=== PATIENT | male | born 1960 | race Caucasian/White ===

== ENCOUNTER 2021-06-16 18:48 | Emergency (ER) | payer OTHER ==
[~2021-06-16] VITALS: Ht 172.7 cm; Wt 61.2 kg
[~2021-06-16 18:48] MED LIST: ALBU90OI INH; AMOX500 PO; AZIT250 PO; Amoxicillin500 MG PO; B-1100 MG PO; BENZ100A PO; Bactrim Ds Tab1 EACH PO; Benadryl 50 mg50 MG PO; CEPH500 PO; CHLO25 PO; CHLO5 PO; CLIN300 PO; CLOB.05TC TOP; Cleocin HCl150 MG PO; Cleocin HCl300 MG PO; DIAZ2 PO; DOXY100 PO; ESOM20; FAMO20 PO; FOLI1 PO; GABA100 PO; HYDACE5 PO; IBUP600 PO; IBUP800 PO; Kristalose20 GM PO; LEVFLO500 PO; MALATHION59 ML TP; MEDICAL MARIJUANA; METR500 PO; MULVITMIND PO; MUPI2TC TOP; NAPR500 PO; Nix Lice Treatm59 ML TOP; Norco 10-325 T1 EACH PO; Nystatin15 GM TOP; OXYC5 PO; PENVK500 PO; PROM25 PO; Pepcid20 MG PO; Pepcid40 MG PO; Permethrin59 ML TOP; Prednisone10 MG PO; RANI150 PO; RXCLIN PO; RXHYDACE PO; RXTRAM50 PO; SULTRIDS PO; SULTRISS PO; TRAM50 PO; Triamcinolone A15 GM TOP; Ultram50 MG PO; Zithromax250 MG PO; Zofran Odt4 MG SL; [UNRECOGNIZED DRUG - REMARK]
== END 2021-06-16 19:40 | disposition home or self-care (01) ==
LOC: ER 18:48
DX: M54.5 Low back pain (principal); G89.29 Other chronic pain; F17.210 Nicotine dependence, cigarettes, uncomplicated; Z79.899 Other long term (current) drug therapy
CPT/HCPCS: 96372; 99282-25; J1885

== ENCOUNTER 2021-07-08 16:45 | Emergency (ER) | payer OTHER ==
[~2021-07-08] VITALS: Ht 170.2 cm; Wt 61.2 kg
== END 2021-07-08 21:00 | disposition left against medical advice (07) ==
LOC: ER 16:45
DX: M54.9 Dorsalgia, unspecified (principal); Z53.21 Procedure and treatment not carried out due to patient leaving prior to being seen by health care provider
CPT/HCPCS: 99283

== ENCOUNTER 2021-08-02 13:44 | Emergency (ER) | payer OTHER ==
[~2021-08-02] VITALS: Ht 167.6 cm; Wt 68.0 kg
[2021-08-02 14:21] LABS: BASOPHILS ABSOLUTE AUTO 0.05 K/mm3 (0.00-0.23); BASOPHILS PERCENT AUTO 1 % (0-2); EOSINOPHILS ABSOLUTE AUTO 0.04 K/mm3 (0.00-0.68); EOSINOPHILS PERCENT AUTO 1 % (0-6); Hematocrit 48.5 % (37.0-53.0); Hemoglobin 16.6 g/dL (13.5-17.5); IMMATURE GRAN ABSOLUTE AUTO 0.01 K/mm3 (0.00-0.10); IMMATURE GRAN PERCENT AUTO 0 % (0-1); LYMPHOCYTES ABSOLUTE AUTO 1.96 K/mm3 (0.84-5.20); LYMPHOCYTES PERCENT AUTO 30 % (21-46); MONOCYTES ABSOLUTE AUTO 0.48 K/mm3 (0.16-1.47); MONOCYTES PERCENT AUTO 7 % (4-13); Mean Corpuscular HGB 34.7 pg (26.0-34.0); Mean Corpuscular HGB Conc 34.2 g/dL (31.5-36.5); Mean Corpuscular Volume 102 fL (80-100); Mean Platelet Volume 12.3 fL (9.1-12.4); NEUTROPHILS ABSOLUTE AUTO 3.97 K/mm3 (1.96-9.15); NEUTROPHILS PERCENT AUTO 61 % (41-73); Platelet Count 103 K/mm3 (150-400); RDW Coefficient Variation 13.9 % (11.7-14.2); RDW Standard Deviation 52.9 fL (35.1-46.3); Red Blood Cell Count 4.78 M/mm3 (4.30-5.90); White Blood Cell Count 6.51 K/mm3 (4.00-11.30)
[2021-08-02 14:30] LABS: Base Excess Venous 0.3 mmol/L; Bicarbonate Venous 23.8 mmol/L (24.0-30.0); PCO2 Venous 50.5 mmHg (38-42); pH Blood Venous 7.33 (7.34-7.37)
[2021-08-02 14:41] LABS: Alanine Aminotransfer (ALT/SGP 74 U/L (12-78); Albumin, Blood 3.8 g/dL (3.4-5.0); Albumin/Globulin Ratio 0.8 (0.8-1.8); Alk Phos 187 U/L (50-136); Anion Gap 8 mmol/L (6-16); Aspartate Aminotrans (AST/SGOT 91 U/L (12-37); Bilirubin, Direct 0.2 mg/dL (0.0-0.3); Bilirubin, Indirect 0.2 mg/dL (0.1-0.7); Bilirubin, Total 0.4 mg/dL (0.1-1.0); Blood Urea Nitrogen 5 mg/dL (8-24); Bun/Creatinine Ratio 10.2 (12.0-20.0); CO2, Blood 24 mmol/L (21-32); Calcium, Blood 8.4 mg/dL (8.5-10.1); Chloride, Blood 108 mmol/L (98-108); Creatinine, Blood 0.49 mg/dL (0.60-1.20); Globulin, Blood 4.6 g/dL (2.2-4.0); Glomerular Filtration Rate >60 (60-); Glucose, Blood 88 mg/dL (70-99); Magnesium, Blood 1.7 mg/dL (1.6-2.4); Potassium, Blood 3.8 mmol/L (3.5-5.5); Sodium, Blood 140 mmol/L (136-145); Total Protein, Blood 8.4 g/dL (6.4-8.2); Troponin I <0.015 ng/mL (0.000-0.040)
[2021-08-02 14:56] LABS: Influenza A, PCR NEGATIVE (NEGATIVE); Influenza B, PCR NEGATIVE (NEGATIVE); Resp Syncytial Virus, PCR NEGATIVE (NEGATIVE); SARS-Cov-2 (COVID-19) PCR, MMC NEGATIVE (NEGATIVE)
[2021-08-02 17:45] LABS: Source, Urine Clean Catch
[2021-08-02 17:53] LABS: Appearance, Urine Clear (Clear); Bilirubin, Urine Neg (Neg); Blood, Urine 1+ (Neg); Color, Urine Yellow (P-Yellow); Glucose Qualitative, Urine Neg (Neg); Ketones, Urine Neg (Neg); Leukocyte Esterase, Urine Neg (Neg); Nitrite, Urine Neg (Neg); Protein, Urine 2+ (Neg); Urobilinogen, Urine NORM (Normal)
[2021-08-02 18:01] LABS: Bacteria Mod /hpf; Mucus Light (0-Heavy); Red Blood Cells, Urine Rare /hpf (0-2); Squamous Epithelial Cells Rare /hpf (Few); White Blood Cells, Urine 0-2 /hpf (0-5)
[2021-08-02] MEDS ORDERED: DOXY100 PO (19:08)
[2021-08-02] MEDS ORDERED: COMBIVENT RESPIM4 G1 INH (19:08)
[2021-08-02] MEDS ORDERED: PRED20 PO (19:08)
[2021-08-02] MEDS ORDERED: SPACE CHAMBER1 EACH XX (19:08)
== END 2021-08-02 19:22 | disposition home or self-care (01) ==
LOC: ER 13:44
PROVIDERS: Student in an Organized Health Care Education/Training Program
DX: J44.1 Chronic obstructive pulmonary disease with (acute) exacerbation (principal); K29.70 Gastritis, unspecified, without bleeding; F10.10 Alcohol abuse, uncomplicated; Z20.822 Contact with and (suspected) exposure to COVID-19; F17.210 Nicotine dependence, cigarettes, uncomplicated
CPT/HCPCS: 0241U; 36415; 71045; 80048; 80076; 81001; 82803; 83690; 83735; 84484; 85025; 87086; 93005; 93010; 96374; 96375; 99284-25; A9270; J1885; J2405; J7030; J7512

== ENCOUNTER 2021-08-03 09:31 | Emergency (ER) | payer OTHER ==
[~2021-08-03] VITALS: Ht 172.7 cm; Wt 59.0 kg
[~2021-08-03 09:31] MED LIST changes: +COMBIVENT RESPIM4 G1 INH; +PRED20 PO; +SPACE CHAMBER1 EACH XX
== END 2021-08-03 11:43 | disposition home or self-care (01) ==
LOC: ER 09:31
DX: S80.211A Abrasion, right knee, initial encounter (principal); J44.9 Chronic obstructive pulmonary disease, unspecified; Z79.899 Other long term (current) drug therapy; F17.210 Nicotine dependence, cigarettes, uncomplicated; Y04.2XXA Assault by strike against or bumped into by another person, initial encounter
CPT/HCPCS: 73564; 99283-25; A9270

== ENCOUNTER 2021-08-18 11:00 | Emergency (ER) | payer OTHER ==
[~2021-08-18] VITALS: Ht 170.2 cm; Wt 54.4 kg
[2021-08-19] MEDS ORDERED: IBUP400 PO (06:03)
[2021-08-19] MEDS ORDERED: ACET500 PO (06:03)
[2021-08-19] MEDS ORDERED: COMBIVENT RESPIM4 G1 INH (06:03)
== END 2021-08-18 15:19 | disposition left against medical advice (07) ==
LOC: ER 11:00
DX: R21 Rash and other nonspecific skin eruption (principal); R06.02 Shortness of breath; Z53.21 Procedure and treatment not carried out due to patient leaving prior to being seen by health care provider; Z59.00 Homelessness unspecified

== ENCOUNTER 2021-08-19 04:03 | Inpatient (IN) | payer OTHER ==
[~2021-08-19] VITALS: Ht 165.1 cm; Wt 70.3 kg
[2021-08-19 04:50] LABS: BASOPHILS ABSOLUTE AUTO 0.04 K/mm3 (0.00-0.23); BASOPHILS PERCENT AUTO 1 % (0-2); EOSINOPHILS ABSOLUTE AUTO 0.03 K/mm3 (0.00-0.68); EOSINOPHILS PERCENT AUTO 0 % (0-6); Hemoglobin 13.1 g/dL (13.5-17.5); IMMATURE GRAN ABSOLUTE AUTO 0.03 K/mm3 (0.00-0.10); IMMATURE GRAN PERCENT AUTO 0 % (0-1); LYMPHOCYTES ABSOLUTE AUTO 1.69 K/mm3 (0.84-5.20); LYMPHOCYTES PERCENT AUTO 21 % (21-46); MONOCYTES ABSOLUTE AUTO 0.82 K/mm3 (0.16-1.47); MONOCYTES PERCENT AUTO 10 % (4-13); Mean Corpuscular HGB 34.5 pg (26.0-34.0); Mean Corpuscular HGB Conc 34.5 g/dL (31.5-36.5); Mean Corpuscular Volume 100 fL (80-100); Mean Platelet Volume 11.5 fL (9.1-12.4); NEUTROPHILS ABSOLUTE AUTO 5.54 K/mm3 (1.96-9.15); NEUTROPHILS PERCENT AUTO 68 % (41-73); Platelet Count 72 K/mm3 (150-400); RDW Coefficient Variation 13.9 % (11.7-14.2); RDW Standard Deviation 50.9 fL (35.1-46.3); White Blood Cell Count 8.15 K/mm3 (4.00-11.30)
[2021-08-19 05:08] LABS: Alanine Aminotransfer (ALT/SGP 84 U/L (12-78); Albumin, Blood 3.3 g/dL (3.4-5.0); Albumin/Globulin Ratio 0.8 (0.8-1.8); Alk Phos 227 U/L (50-136); Anion Gap 11 mmol/L (6-16); Aspartate Aminotrans (AST/SGOT 149 U/L (12-37); Bilirubin, Total 0.5 mg/dL (0.1-1.0); Blood Urea Nitrogen 12 mg/dL (8-24); CO2, Blood 19 mmol/L (21-32); Calcium, Blood 8.5 mg/dL (8.5-10.1); Chloride, Blood 104 mmol/L (98-108); Creatinine, Blood 0.48 mg/dL (0.60-1.20); Globulin, Blood 4.3 g/dL (2.2-4.0); Glomerular Filtration Rate >60 (60-); Glucose, Blood 98 mg/dL (70-99); Magnesium, Blood 1.9 mg/dL (1.6-2.4); Potassium, Blood 5.1 mmol/L (3.5-5.5); Sodium, Blood 134 mmol/L (136-145); Total Protein, Blood 7.6 g/dL (6.4-8.2); Troponin I <0.015 ng/mL (0.000-0.040)
[2021-08-19 05:24] LABS: Influenza A, PCR NEGATIVE (NEGATIVE); Influenza B, PCR NEGATIVE (NEGATIVE); Resp Syncytial Virus, PCR NEGATIVE (NEGATIVE); SARS-Cov-2 (COVID-19) PCR, MMC NEGATIVE (NEGATIVE)
[2021-08-19] MEDS ORDERED: IBUP400 PO (06:03)
[2021-08-19] MEDS ORDERED: COMBIVENT RESPIM4 G1 INH (06:03)
[2021-08-19] MEDS ORDERED: ACET500 PO (06:03)
[2021-08-19 10:23] LABS: International Normalized Ratio 1.08; Prothrombin Time Results 11.3 Sec (9.7-11.5)
[2021-08-19 11:16] LABS: Source, Urine Clean Catch
[2021-08-19 11:21] LABS: Appearance, Urine Clear (Clear); Bilirubin, Urine Neg (Neg); Blood, Urine Neg (Neg); Glucose Qualitative, Urine Neg (Neg); Ketones, Urine Neg (Neg); Leukocyte Esterase, Urine Neg (Neg); Nitrite, Urine Neg (Neg); Protein, Urine Neg (Neg); Specific Gravity, Urine 1.015 (1.003-1.022); Urobilinogen, Urine NORM (Normal)
[2021-08-19 12:23] LABS: Color, Urine Pale Yellow (P-Yellow)
[2021-08-19 13:30] LABS: Percent Saturation 66.2 % (20.0-50.0)
--- NOTE | 2021-08-19 13:32 | NUR ---
Echocardiogram completed.
--- NOTE | 2021-08-19 17:11 | NUR ---
SHIFT SUMMARY: PATIENT TRANSFERRED FROM ED W/DX OF RAPID AFIB. PATIENT REPORTS ALCOHOL ABUSE AND STATED LAST DRINK WAS 08/18. CIWA SCORE OF 11 AT 1610; MEDICATED PER EMAR. PATIENT HAS REPORTED CHILLS SINCE ARRIVAL; THIS RN HAS SUPPLIED WARMED BLANKETS. PATIENT IS NAUSEOUS WITH HEADACHE BUT HAS NOT VOMITED. PATIENT STATES HIS FEET ARE "KILLING HIM." MEDICATED FOR PAIN PER EMAR THOUGH PATIENT REPORTED SAME PAIN OF 8/10 IN FEET UPON REASSESSMENT. PATIENT DROWSY AND WITHDRAWN. SCATTERED SCABS ON ALL EXTREMETIES; MEDIPLEX APPLIED TO SACRUM. HAIR AND SKIN WAS CLEANSED UPON ARRIVAL TO UNIT. PATIENT IS A&O X4 WHEN AWAKE. WILL REPORT TO NOC RN.
--- NOTE | 2021-08-19 21:00 | NUR ---
ASSUMED CARE OF PATIENT AT 1900. PATIENT IS A/O X4 BUT VERY LETHARGIC, LAST CIWA OF 11, MEDICATED PER EMAR. PATIENT STATES GENERALIZED BODY PAINS. VERY TREMULOUS. AFIB AVG 97 PER TELEMETRY. CONDOM CATH WAS PLACED D/T BEING TREMULOUS AND VERY LETHARGIC. PSORIASIS ON ALL EXTREMITIES AND VERY DRY SKIN. WILL UPDATE WITH CHANGES DURING THIS SHIFT.
[2021-08-20 04:03] LABS: Hematocrit 32.2 % (37.0-53.0); Hemoglobin 10.9 g/dL (13.5-17.5); Mean Corpuscular HGB 34.7 pg (26.0-34.0); Mean Corpuscular HGB Conc 33.9 g/dL (31.5-36.5); Mean Corpuscular Volume 103 fL (80-100); Platelet Count 54 K/mm3 (150-400); RDW Coefficient Variation 14.4 % (11.7-14.2); RDW Standard Deviation 53.9 fL (35.1-46.3); Red Blood Cell Count 3.14 M/mm3 (4.30-5.90); White Blood Cell Count 7.24 K/mm3 (4.00-11.30)
[2021-08-20 04:33] LABS: Alanine Aminotransfer (ALT/SGP 54 U/L (12-78); Albumin, Blood 2.3 g/dL (3.4-5.0); Alk Phos 156 U/L (50-136); Anion Gap 4 mmol/L (6-16); Aspartate Aminotrans (AST/SGOT 84 U/L (12-37); Bilirubin, Total 1.2 mg/dL (0.1-1.0); Blood Urea Nitrogen 9 mg/dL (8-24); Bun/Creatinine Ratio 13.9 (12.0-20.0); CO2, Blood 23 mmol/L (21-32); Calcium, Blood 7.7 mg/dL (8.5-10.1); Chloride, Blood 115 mmol/L (98-108); Creatinine, Blood 0.65 mg/dL (0.60-1.20); Glomerular Filtration Rate >60 (60-); Glucose, Blood 81 mg/dL (70-99); Magnesium, Blood 1.9 mg/dL (1.6-2.4); Potassium, Blood 4.5 mmol/L (3.5-5.5); Sodium, Blood 142 mmol/L (136-145)
[2021-08-20 04:38] LABS: Albumin/Globulin Ratio 0.7 (0.8-1.8); Globulin, Blood 3.2 g/dL (2.2-4.0)
[2021-08-20 04:59] LABS: Total Protein, Blood 5.5 g/dL (6.4-8.2)
--- NOTE | 2021-08-20 14:45 | NUR ---
Patient is sitting up in bed and immediately tells me that he has no hope for mcc or food, that his spouse, in [place] 4mos ago and that [facility] kicked him out. We explore sources of meaning, purpose and value. Patient is fairly closed off to anything that is attached to hope of movement forward. I will continue to attempt to assist patient in his perspective about himself and the future.
--- NOTE | 2021-08-20 16:58 | NUR ---
SHIFT SUMMARY PT HAS BEEN RESTING IN BED COMFORTABLY ALL DAY. PT HAS COMPLAINED OF GENERALIZED PAIN SEVERAL TIMES TODAY, WITH THE WORST PAIN IN BLE, TREATED PER EMAR. PT GOT EMOTIONAL WHILE TALKING ABOUT PLANS AFTER DISCHARGE, PT IS WORRIED ABOUT LIVING SITUATION AND ONGOING HEALTH.
--- NOTE | 2021-08-20 22:01 | NUR ---
ASSUMED CARE OF PT AT 1900. A/OX4 BUT LETHARGIC. C/O GENERALIZED BODY PAINS. CIWA 8. VERY TREMULOUS AND C/O NAUSEA & H/A. NSR. CONDOM CATH IN PLACE. VSS. LS CLEAR T/O AND MAINTAINS ABOVE 92% ON RA WITH SOME DESAT WHILE SLEEPING. WILL UPDATE WITH ANY CHANGES THIS SHIFT.
[2021-08-21 06:02] LABS: Hematocrit 34.4 % (37.0-53.0); Hemoglobin 11.7 g/dL (13.5-17.5); Mean Corpuscular HGB 35.1 pg (26.0-34.0); Mean Corpuscular Volume 103 fL (80-100); Mean Platelet Volume 12.4 fL (9.1-12.4); Platelet Count 51 K/mm3 (150-400); RDW Coefficient Variation 13.1 % (11.7-14.2); RDW Standard Deviation 49.9 fL (35.1-46.3); Red Blood Cell Count 3.33 M/mm3 (4.30-5.90)
[2021-08-21 06:04] LABS: White Blood Cell Count 6.41 K/mm3 (4.00-11.30)
--- NOTE | 2021-08-21 15:27 | NUR ---
TRANSFER UPDATEREPORT WAS GIVEN AT 1520 VIA PHONE TO AVANI MARQUEZ. PT LEFT UNIT AT 1528 WHEELCHAIR OCCOMPANIED BY RN AND TECH. PT BELONGINGS IN BAGS AND TRANSFERED WITH PT. PT ON ROOM AIR.
--- NOTE | 2021-08-21 19:12 | NUR ---
Mr Sood is a 61 year old male transfered to room 345 from PCU 10 , with an admission diagnosis of AFIB. He is alert and oriented x3, with anxiety and some confusion. Mild tremor noted. He was evalauted for alcohol withdrawal and secored 8 on CIWA. LIRIUM 25 MG was given and it effective. oxycodone 5 mg po was given for pain management, it was effective. One person assist with SBA.Used urinal for voiding. vital signs are stable. Call light within reach.Continue to monitor.
--- NOTE | 2021-08-22 04:31 | NUR ---
SHIFT SUMMARY A/OX3, FORGETFUL AND IMPULSIVE AT TIMES. C/O GENERALIZED PAIN MEDICATED PER EMAR. CIWA'S Q4 AND PRN PER PROTOCOL. SBA WITH CANE TO BATHROOM. VSS, NO ACUTE CHANGES AT THIS TIME. BED IN LOWEST POSITION WITH CALL LIGHT IN REACH. WILL CONTINUE TO MONITOR AND REPORT TO ONCOMING RN.
--- NOTE | 2021-08-22 06:05 | NUR ---
UPDATE PT STATING THAT HE IS "CHECKING HIMSELF OUT OF THIS HOSPITAL" DISCUSSED RISKS OF LEAVING AMA. PT STATES HE IS IN SEVERE PAIN AND NEEDS PAIN MEDICATION AND IS NOW WANTING TO STAY FOR THE TIME BEING AND WOULD LIKE TO DISCUSS WITH PROVIDER.
--- NOTE | 2021-08-22 11:55 | NUR ---
Alert and oriented x3 ,able to make needs known. Complained of anxiety , librum 25 mg po was given. Patient thretaened to leave AMA if he is not given oxycodone and briefly sat on the floor, staff later asked him to get up , he was assisted and redirected. He expressed desire to AMA for second time and packed his belongings. Dr Maharaj notified . Patient left AMA.
== END 2021-08-22 11:44 | disposition left against medical advice (07) | DRG 309 ==
LOC: ER 04:03 → ERHOLD 04:04 → PCU 04:04 → ERHOLD 04:05 → ER 09:21 → ERHOLD 09:21 → PCU 14:21 → MEDS 08-21 15:30
PROVIDERS: Internal Medicine; Student in an Organized Health Care Education/Training Program; ADMIT Internal Medicine
DX: I48.91 Unspecified atrial fibrillation (principal); F10.239 Alcohol dependence with withdrawal, unspecified; E87.1 Hypo-osmolality and hyponatremia; E87.2 Acidosis; T69.1XXA Chilblains, initial encounter; Z66 Do not resuscitate; J44.9 Chronic obstructive pulmonary disease, unspecified; D64.9 Anemia, unspecified; Z20.822 Contact with and (suspected) exposure to COVID-19; R74.01 Elevation of levels of liver transaminase levels; Z23 Encounter for immunization; Z59.00 Homelessness unspecified; D69.6 Thrombocytopenia, unspecified; M25.572 Pain in left ankle and joints of left foot; M25.571 Pain in right ankle and joints of right foot; B18.2 Chronic viral hepatitis C; F41.9 Anxiety disorder, unspecified; L40.9 Psoriasis, unspecified
CPT/HCPCS: 0241U; 36415; 71045; 80053; 81003; 82010; 82607; 82728; 82746; 83540; 83550; 83605; 83735; 84100; 84145; 84484; 85025; 85027; 85610; 85651; 85730; 86141; 90686; 92960; 93005; 93010; 93306; 94640; 94760; 96365; 96366; 96372; 96375; 96376; 99152; 99285-25; A9270; C1751; C9113; G0008; G0378; G0480; J1650; J1885; J2060; J2270; J2405; J3411; J3475; J7030; J7042

== ENCOUNTER 2021-08-22 21:16 | Emergency (ER) | payer OTHER ==
[~2021-08-22] VITALS: Ht 167.6 cm; Wt 59.9 kg
[~2021-08-22 21:16] MED LIST changes: +ACET500 PO; +IBUP400 PO
== END 2021-08-22 23:13 | disposition home or self-care (01) ==
LOC: ER 21:16
DX: F10.10 Alcohol abuse, uncomplicated (principal); M25.561 Pain in right knee; G89.29 Other chronic pain; Z79.899 Other long term (current) drug therapy; J44.9 Chronic obstructive pulmonary disease, unspecified; F17.210 Nicotine dependence, cigarettes, uncomplicated
CPT/HCPCS: 99283

== ENCOUNTER 2021-09-05 13:51 | Emergency (ER) | payer OTHER ==
[~2021-09-05] VITALS: Ht 170.2 cm; Wt 59.0 kg
[~2021-09-05 13:51] MED LIST changes: +Triamcinolone A15 G3 TOP
[2021-09-05 14:38] LABS: Hematocrit 37.5 % (37.0-53.0); Hemoglobin 12.5 g/dL (13.5-17.5); Mean Corpuscular HGB 34.4 pg (26.0-34.0); Mean Corpuscular HGB Conc 33.3 g/dL (31.5-36.5); Mean Corpuscular Volume 103 fL (80-100); Mean Platelet Volume 11.6 fL (9.1-12.4); Platelet Count 121 K/mm3 (150-400); RDW Coefficient Variation 14.2 % (11.7-14.2); RDW Standard Deviation 54.4 fL (35.1-46.3); Red Blood Cell Count 3.63 M/mm3 (4.30-5.90); White Blood Cell Count 9.57 K/mm3 (4.00-11.30)
[2021-09-05 14:56] LABS: Alanine Aminotransfer (ALT/SGP 48 U/L (12-78); Albumin, Blood 3.2 g/dL (3.4-5.0); Albumin/Globulin Ratio 0.7 (0.8-1.8); Alk Phos 172 U/L (50-136); Anion Gap 8 mmol/L (6-16); Aspartate Aminotrans (AST/SGOT 58 U/L (12-37); Bilirubin, Total 0.3 mg/dL (0.1-1.0); Blood Urea Nitrogen 10 mg/dL (8-24); Bun/Creatinine Ratio 15.8 (12.0-20.0); CO2, Blood 25 mmol/L (21-32); Calcium, Blood 8.5 mg/dL (8.5-10.1); Chloride, Blood 104 mmol/L (98-108); Creatinine, Blood 0.63 mg/dL (0.60-1.20); Globulin, Blood 4.4 g/dL (2.2-4.0); Glomerular Filtration Rate >60 (60-); Glucose, Blood 89 mg/dL (70-99); Potassium, Blood 4.1 mmol/L (3.5-5.5); Sodium, Blood 137 mmol/L (136-145); Total Protein, Blood 7.6 g/dL (6.4-8.2); Troponin I <0.015 ng/mL (0.000-0.040)
[2021-09-05 15:05] LABS: BAND PERCENT MAN 1 % (0-8); BASOPHILS PERCENT MAN 0 % (0-2); EOSINOPHILS ABSOLUTE MAN 0.09 K/mm3 (0.00-0.68); EOSINOPHILS PERCENT MAN 1 % (0-6); LYMPHOCYTES % ATYPICAL MANUAL 2 % (0-0); LYMPHOCYTES ABSOLUTE MAN 2.87 K/mm3 (0.84-5.20); LYMPHOCYTES PERCENT MAN 28 % (21-46); MONOCYTES ABSOLUTE MAN 0.38 K/mm3 (0.16-1.47); MONOCYTES PERCENT MAN 4 % (4-13); NEUTROPHILS ABSOLUTE MAN 6.22 K/mm3 (1.96-9.15); SEG NEUTROPHILS PERCENT MAN 64 % (41-73); TOTAL CELLS COUNTED 100
[2021-09-09] MEDS ORDERED: CEPH500 PO (15:56)
== END 2021-09-05 17:59 | disposition home or self-care (01) ==
LOC: ER 13:51
PROVIDERS: Emergency Medicine
DX: R07.9 Chest pain, unspecified (principal); F17.210 Nicotine dependence, cigarettes, uncomplicated
CPT/HCPCS: 71045; 80053; 84484; 85025; 93005; 93010; 99285-25

== ENCOUNTER 2021-10-22 14:40 | Emergency (ER) | payer OTHER ==
[~2021-10-22] VITALS: Ht 170.2 cm; Wt 59.0 kg
[2021-10-22 16:03] LABS: BASOPHILS ABSOLUTE AUTO 0.06 K/mm3 (0.00-0.23); BASOPHILS PERCENT AUTO 1 % (0-2); EOSINOPHILS ABSOLUTE AUTO 0.04 K/mm3 (0.00-0.68); EOSINOPHILS PERCENT AUTO 1 % (0-6); Hematocrit 39.1 % (37.0-53.0); Hemoglobin 13.7 g/dL (13.5-17.5); IMMATURE GRAN ABSOLUTE AUTO 0.02 K/mm3 (0.00-0.10); IMMATURE GRAN PERCENT AUTO 0 % (0-1); LYMPHOCYTES PERCENT AUTO 16 % (21-46); MONOCYTES ABSOLUTE AUTO 0.74 K/mm3 (0.16-1.47); MONOCYTES PERCENT AUTO 10 % (4-13); Mean Corpuscular HGB 35.4 pg (26.0-34.0); Mean Corpuscular Volume 101 fL (80-100); Mean Platelet Volume 11.9 fL (9.1-12.4); NEUTROPHILS ABSOLUTE AUTO 5.36 K/mm3 (1.96-9.15); NEUTROPHILS PERCENT AUTO 72 % (41-73); Platelet Count 81 K/mm3 (150-400); RDW Coefficient Variation 13.6 % (11.7-14.2); RDW Standard Deviation 51.1 fL (35.1-46.3); Red Blood Cell Count 3.87 M/mm3 (4.30-5.90); White Blood Cell Count 7.42 K/mm3 (4.00-11.30)
[2021-10-22 16:32] LABS: C-REACTIVE PROTEIN, EXT RANGE <0.290 mg/dL (0.000-0.300)
[2021-10-22 16:39] LABS: Alanine Aminotransfer (ALT/SGP 67 U/L (12-78); Albumin/Globulin Ratio 1.1 (0.8-1.8); Alk Phos 184 U/L (50-136); Anion Gap 9 mmol/L (6-16); Aspartate Aminotrans (AST/SGOT 90 U/L (12-37); Bilirubin, Total 0.7 mg/dL (0.1-1.0); Blood Urea Nitrogen 11 mg/dL (8-24); Bun/Creatinine Ratio 16.2 (12.0-20.0); CO2, Blood 22 mmol/L (21-32); Calcium, Blood 8.5 mg/dL (8.5-10.1); Chloride, Blood 102 mmol/L (98-108); Creatinine, Blood 0.68 mg/dL (0.60-1.20); Globulin, Blood 3.5 g/dL (2.2-4.0); Glomerular Filtration Rate >60 (60-); Glucose, Blood 92 mg/dL (70-99); Potassium, Blood 4.6 mmol/L (3.5-5.5); Sodium, Blood 133 mmol/L (136-145); Total Protein, Blood 7.5 g/dL (6.4-8.2)
[2021-10-22] MEDS ORDERED: Cleocin HCl150 MG PO (18:13)
[2021-10-22] MEDS ORDERED: MUPIROCIN1 G1 TOP (18:13)
== END 2021-10-22 18:52 | disposition home or self-care (01) ==
LOC: ER 14:40
PROVIDERS: Physician Assistant
DX: L08.9 Local infection of the skin and subcutaneous tissue, unspecified (principal)
CPT/HCPCS: 36415; 73620; 80053; 85025; 86140; 99284-25; A9270

== ENCOUNTER 2021-12-01 14:50 | Emergency (ER) | payer OTHER ==
[~2021-12-01] VITALS: Ht 170.2 cm; Wt 58.5 kg
[~2021-12-01 14:50] MED LIST changes: +MUPIROCIN1 G1 TOP
[2021-12-01] MEDS ORDERED: Bactrim Ds Tab1 EACH PO (15:56)
[2021-12-01] MEDS ORDERED: CEPH500 PO (15:56)
== END 2021-12-01 16:10 | disposition home or self-care (01) ==
LOC: ER 14:50
DX: S00.31XA Abrasion of nose, initial encounter (principal); L03.032 Cellulitis of left toe; L02.612 Cutaneous abscess of left foot; W19.XXXA Unspecified fall, initial encounter; Z79.899 Other long term (current) drug therapy; F17.290 Nicotine dependence, other tobacco product, uncomplicated
CPT/HCPCS: 99283; A9270

== ENCOUNTER 2022-02-25 14:01 | Emergency (ER) | payer OTHER ==
[~2022-02-25] VITALS: Ht 167.6 cm; Wt 61.2 kg
[~2022-02-25 14:01] MED LIST changes: +ACETAMINOPHEN500 MG PO
[2022-02-25] MEDS ORDERED: IBUP800 PO (15:14)
[2022-02-25] MEDS ORDERED: ONDA4ODT MM (15:14)
== END 2022-02-25 15:17 | disposition home or self-care (01) ==
LOC: ER 14:01
DX: S20.219A Contusion of unspecified front wall of thorax, initial encounter (principal); Y04.8XXA Assault by other bodily force, initial encounter; J44.9 Chronic obstructive pulmonary disease, unspecified; F17.200 Nicotine dependence, unspecified, uncomplicated
CPT/HCPCS: 71046; 99284-25

== ENCOUNTER 2022-04-08 12:25 | Emergency (ER) | payer OTHER ==
[~2022-04-08] VITALS: Ht 170.2 cm; Wt 59.0 kg
[~2022-04-08 12:25] MED LIST changes: +ONDA4ODT MM
== END 2022-04-08 13:36 | disposition left against medical advice (07) ==
LOC: ER 12:25
DX: L08.9 Local infection of the skin and subcutaneous tissue, unspecified (principal); Z53.21 Procedure and treatment not carried out due to patient leaving prior to being seen by health care provider
CPT/HCPCS: 99283

== ENCOUNTER 2022-04-08 21:57 | Emergency (ER) | payer OTHER ==
[~2022-04-08] VITALS: Ht 167.6 cm; Wt 56.7 kg
== END 2022-04-09 00:45 | disposition left against medical advice (07) ==
LOC: ER 21:57
DX: R68.84 Jaw pain (principal); Z53.21 Procedure and treatment not carried out due to patient leaving prior to being seen by health care provider
CPT/HCPCS: 70450; 70486

== ENCOUNTER 2022-05-05 23:19 | Observation (INO) | payer OTHER ==
[~2022-05-05] VITALS: Ht 170.2 cm; Wt 59.5 kg
[2022-05-06 01:12] LABS: BASOPHILS ABSOLUTE AUTO 0.03 K/mm3 (0.00-0.23); BASOPHILS PERCENT AUTO 0 % (0-2); EOSINOPHILS ABSOLUTE AUTO 0.15 K/mm3 (0.00-0.68); EOSINOPHILS PERCENT AUTO 2 % (0-6); Hematocrit 38.1 % (37.0-53.0); Hemoglobin 13.1 g/dL (13.5-17.5); IMMATURE GRAN ABSOLUTE AUTO 0.03 K/mm3 (0.00-0.10); IMMATURE GRAN PERCENT AUTO 0 % (0-1); LYMPHOCYTES ABSOLUTE AUTO 2.28 K/mm3 (0.84-5.20); LYMPHOCYTES PERCENT AUTO 31 % (21-46); MONOCYTES ABSOLUTE AUTO 0.61 K/mm3 (0.16-1.47); MONOCYTES PERCENT AUTO 8 % (4-13); Mean Corpuscular HGB 36.5 pg (26.0-34.0); Mean Corpuscular HGB Conc 34.4 g/dL (31.5-36.5); Mean Corpuscular Volume 106 fL (80-100); Mean Platelet Volume 12.2 fL (9.1-12.4); NEUTROPHILS ABSOLUTE AUTO 4.19 K/mm3 (1.96-9.15); NEUTROPHILS PERCENT AUTO 57 % (41-73); Platelet Count 68 K/mm3 (150-400); RDW Coefficient Variation 12.2 % (11.7-14.2); RDW Standard Deviation 48.6 fL (35.1-46.3); Red Blood Cell Count 3.59 M/mm3 (4.30-5.90); White Blood Cell Count 7.29 K/mm3 (4.00-11.30)
[2022-05-06 02:01] LABS: Bun/Creatinine Ratio 11.2 (12.0-20.0); Calcium, Blood 9.1 mg/dL (8.5-10.1); Creatinine, Blood 0.54 mg/dL (0.60-1.20); Potassium, Blood 3.8 mmol/L (3.5-5.5)
[2022-05-06 02:16] LABS: U Amphetamine Screen Not Detected; U Barbituate Screen Not Detected; U Benzodiazapine Screen Not Detected; U Buprenorphine Screen Not Detected; U Cannabinoids Screen DETECTED; U Cocaine Screen Not Detected; U Methadone Screen Not Detected; U Methamphetamine Screen Not Detected; U Opiates Screen Not Detected; U Oxycodone Screen Not Detected; U Phencyclidine Screen Not Detected; U Propoxyphene Screen Not Detected
[2022-05-06 04:19] LABS: Albumin/Globulin Ratio 1.1 (0.8-1.8); Bilirubin, Direct 0.3 mg/dL (0.0-0.3); Bilirubin, Indirect 0.1 mg/dL (0.1-0.7); Bilirubin, Total 0.4 mg/dL (0.1-1.0); Globulin, Blood 3.8 g/dL (2.2-4.0); Total Protein, Blood 7.8 g/dL (6.4-8.2)
[2022-05-06 04:23] LABS: Thyroid Stimulating Hormone 1.13 uIU/mL (0.360-4.800)
--- NOTE | 2022-05-06 06:19 | NUR ---
SHIFT SUMMARY PT TO ROOM FROM ER. AXO. CIWA >15. IN SR. VSS. CARDIZEM GTT INFUSING @5, TITRATED OFF ON ADMIT. ADMISSION HX COMPLETE. PT COOPERATIVE BUT A BIT STANDOFFISH. HOMELESS. LARGE RASH BILATERALLY DISTAL KNEES TO ANKLES. PT MEDICATED FOR CIWA. PT STATES FEELING LIKE HES GOING TO GO INTO DT'S SOON IF HE HADNT BEEN MEDICATED AND STATES HS DT'S ARE SEVERE. BED ALARM ON. PT ORIENTED TO RM.
[2022-05-06] MEDS ORDERED: ONE DAILY ESS400 MCG PO (12:21)
[2022-05-06] MEDS ORDERED: ASPI81CH PO (12:21)
[2022-05-06] MEDS ORDERED: METO25ER PO (12:22)
[2022-05-06] MEDS ORDERED: B-1100 M1 PO (12:22)
--- NOTE | 2022-05-06 14:54 | NUR ---
Echocardiogram completed.
--- NOTE | 2022-05-06 15:25 | NUR ---
PT ABLE TO AMBULATE IN ROOM W/O ASSISTANCE, GAIT STEADY. HR HAS REMAINED 70-80s IN NORMAL SINUS RHYTHM T/O THE DAY. DR LIRA AWARE AND ORDERS TO DISCHARGE PLACED EARLIER THIS SHIFT. PRESCRIPTIONS CALLED TO [facility] [place] PER PT REQUEST. DISCHARGE TEACHING REVIEWED WITH PT INCLUDING NEW MEDICATIONS, NEED FOR FOLLOW UP APPOINTMENT AND DISCHARGE EDUCATION MATERIALS. PT STATES HE IS HOMELESS, CASE MANAGEMENT INVOLVED AND PT PROVIDED WITH A LIST OF RESOURCES. PT VERBALIZES UNDERSTANDING OF DISCHARGE INSTRUCTIONS, ALL IVs REMOVED, PT ABLE TO DRESS HIMSELF AND ALL BELONGINGS SENT WITH PT. NO FURTHER DISCHARGE NEEDS IDENTIFIED.
== END 2022-05-06 15:58 | disposition home or self-care (01) ==
LOC: ER 23:19 → PCU 23:20
PROVIDERS: Emergency Medicine; ADMIT Family Medicine
DX: L40.9 Psoriasis, unspecified (principal); I48.91 Unspecified atrial fibrillation; D69.6 Thrombocytopenia, unspecified; F10.239 Alcohol dependence with withdrawal, unspecified; B19.20 Unspecified viral hepatitis C without hepatic coma; A63.0 Anogenital (venereal) warts; J44.9 Chronic obstructive pulmonary disease, unspecified; F17.210 Nicotine dependence, cigarettes, uncomplicated; Z59.00 Homelessness unspecified
CPT/HCPCS: 71046; 80048; 80076; 84443; 84484; 85025; 92960; 93005; 93010; 93306; 94644; 94664; 96365; 96366; 96367; 96375; 96376; 99285-25; A9270; G0378; G0480; J1100; J2060; J2704; J3010; J3475; J7030; J7120

== ENCOUNTER 2022-09-29 15:46 | Emergency (ER) | payer OTHER ==
[~2022-09-29] VITALS: Ht 167.6 cm; Wt 67.1 kg
[~2022-09-29 15:46] MED LIST changes: +ASPI81CH PO; +B-1100 M1 PO; +METO25ER PO; +ONE DAILY ESS400 MCG PO
[2022-09-29 17:31] LABS: BASOPHILS ABSOLUTE AUTO 0.05 K/mm3 (0.00-0.23); BASOPHILS PERCENT AUTO 1 % (0-2); EOSINOPHILS ABSOLUTE AUTO 0.04 K/mm3 (0.00-0.68); EOSINOPHILS PERCENT AUTO 0 % (0-6); Hematocrit 38.2 % (37.0-53.0); IMMATURE GRAN ABSOLUTE AUTO 0.03 K/mm3 (0.00-0.10); IMMATURE GRAN PERCENT AUTO 0 % (0-1); LYMPHOCYTES ABSOLUTE AUTO 1.69 K/mm3 (0.84-5.20); LYMPHOCYTES PERCENT AUTO 19 % (21-46); MONOCYTES ABSOLUTE AUTO 1.16 K/mm3 (0.16-1.47); MONOCYTES PERCENT AUTO 13 % (4-13); Mean Corpuscular HGB 35.7 pg (26.0-34.0); Mean Corpuscular Volume 105 fL (80-100); Mean Platelet Volume 12.1 fL (9.1-12.4); NEUTROPHILS ABSOLUTE AUTO 5.97 K/mm3 (1.96-9.15); NEUTROPHILS PERCENT AUTO 67 % (41-73); Platelet Count 81 K/mm3 (150-400); RDW Coefficient Variation 13.5 % (11.7-14.2); RDW Standard Deviation 52.9 fL (35.1-46.3); Red Blood Cell Count 3.64 M/mm3 (4.30-5.90); White Blood Cell Count 8.94 K/mm3 (4.00-11.30)
[2022-09-29 17:46] LABS: Albumin, Blood 3.6 g/dL (3.4-5.0); Albumin/Globulin Ratio 1.1 (0.8-1.8); Bilirubin, Total 0.9 mg/dL (0.1-1.0); Bun/Creatinine Ratio 13.1 (12.0-20.0); Calcium, Blood 8.3 mg/dL (8.5-10.1); Creatinine, Blood 0.61 mg/dL (0.60-1.20); Globulin, Blood 3.2 g/dL (2.2-4.0); Potassium, Blood 3.5 mmol/L (3.5-5.5); Total Protein, Blood 6.8 g/dL (6.4-8.2)
[2022-09-29] MEDS ORDERED: Toprol Xl25 MG PO (18:25)
[2022-09-29] MEDS ORDERED: PRED10 PO (18:25)
== END 2022-09-29 19:01 | disposition home or self-care (01) ==
LOC: ER 15:46
PROVIDERS: Emergency Medicine
DX: I48.91 Unspecified atrial fibrillation (principal); L40.9 Psoriasis, unspecified; J44.9 Chronic obstructive pulmonary disease, unspecified; F17.290 Nicotine dependence, other tobacco product, uncomplicated; Z79.899 Other long term (current) drug therapy; Z79.52 Long term (current) use of systemic steroids
CPT/HCPCS: 71045; 80053; 85025; 93005; 93010; J1100; J1885

== ENCOUNTER 2022-11-09 04:07 | Inpatient (IN) | payer OTHER ==
[~2022-11-09] VITALS: Ht 170.2 cm; Wt 67.9 kg
[~2022-11-09 04:07] MED LIST changes: +PRED10 PO; +Toprol Xl25 MG PO
[2022-11-09 04:37] LABS: BASOPHILS ABSOLUTE AUTO 0.07 K/mm3 (0.00-0.23); BASOPHILS PERCENT AUTO 1 % (0-2); EOSINOPHILS ABSOLUTE AUTO 0.31 K/mm3 (0.00-0.68); EOSINOPHILS PERCENT AUTO 5 % (0-6); Hematocrit 41.4 % (37.0-53.0); Hemoglobin 14.2 g/dL (13.5-17.5); IMMATURE GRAN ABSOLUTE AUTO 0.03 K/mm3 (0.00-0.10); IMMATURE GRAN PERCENT AUTO 0 % (0-1); LYMPHOCYTES ABSOLUTE AUTO 2.41 K/mm3 (0.84-5.20); LYMPHOCYTES PERCENT AUTO 36 % (21-46); MONOCYTES ABSOLUTE AUTO 0.75 K/mm3 (0.16-1.47); MONOCYTES PERCENT AUTO 11 % (4-13); Mean Corpuscular HGB 35.5 pg (26.0-34.0); Mean Corpuscular HGB Conc 34.3 g/dL (31.5-36.5); Mean Corpuscular Volume 104 fL (80-100); NEUTROPHILS ABSOLUTE AUTO 3.11 K/mm3 (1.96-9.15); NEUTROPHILS PERCENT AUTO 47 % (41-73); RDW Coefficient Variation 13.7 % (11.7-14.2); RDW Standard Deviation 52.8 fL (35.1-46.3); White Blood Cell Count 6.68 K/mm3 (4.00-11.30)
[2022-11-09 04:49] LABS: Albumin, Blood 3.5 g/dL (3.4-5.0); Albumin/Globulin Ratio 0.8 (0.8-1.8); Bilirubin, Total 0.6 mg/dL (0.1-1.0); Bun/Creatinine Ratio 9.9 (12.0-20.0); Calcium, Blood 8.7 mg/dL (8.5-10.1); Creatinine, Blood 0.61 mg/dL (0.60-1.20); Globulin, Blood 4.2 g/dL (2.2-4.0); Magnesium, Blood 2.1 mg/dL (1.6-2.4); Potassium, Blood 4.8 mmol/L (3.5-5.5); Total Protein, Blood 7.7 g/dL (6.4-8.2)
[2022-11-09 04:52] LABS: Mean Platelet Volume 11.9 fL (9.1-12.4)
[2022-11-09 05:19] LABS: Platelet Count 103 K/mm3 (150-400)
--- NOTE | 2022-11-09 11:45 | NUR ---
Pt arrived to PCU # 3 from ED on Cardizem gtt @ 15 mg/hr. Pt ambulatory and cooperative w/ care, standby assist. A&Ox4, GCS 15. Advises he drinks x3 24 oz beers daily, is on the CIWA score and recently admin Ativan IVP in ED. Advises nausea, but ate a sandwich down in ED prior to transport. Personal effects at bedside. Pt changed into pajama pant, refused to wear a gown, on tele and contiouns pulse ox.
--- NOTE | 2022-11-09 13:00 | NUR ---
Cardizem gtt stopped; HR decreased into the 70s and BP 80.60, though MAP is in the 70s. Will call physician for fluid orders.
--- NOTE | 2022-11-09 18:02 | NUR ---
Pt admitted today from the ED w/ AFIB w/ RVR. Came to room on Diltiazem gtt @ 15 mcg/hr. Pt became hypotensive around 1300. Cardizem gtt stopped. Restarted later in the afternoon when his rate >100 BPM and still in A-Fib. Pt has remained normotensive this time and is also on NS @ 50 ml/hr. Pt remains on CIWA protocol.
--- NOTE | 2022-11-10 01:00 | NUR ---
NOTIFIED PT NOT ON ANTICOAGULATION, SCD'S IN PLACE. NOTIFIED. NO NEW ORDERS. WILL CONT TO MONITOR
--- NOTE | 2022-11-10 05:43 | NUR ---
SHIFT SUMMARY PT ALERT AND ORIENTED X 4. BP STABLE. CARDIZEM GTT CURRENTLY AT 5 MG/HR. HR CURRENLY AFIB, 90'S. SEE ICU FLOWSHEET FOR TITRATIONS. CIWA MAX 12. MEDICATED PER EMAR. PT CURRENLTY SLEEPING. NO CP OR PRESSURE. OXYGEN SATURATION MAINTAINED ABOVE 92% ON 4 L VIA NC. CALL LIGHT WITHIN REACH. WILL CONT TO MONITOR UNTIL REPORT GIVEN TO CLYDE MARQUEZ.
[2022-11-10 06:57] LABS: BASOPHILS ABSOLUTE AUTO 0.01 K/mm3 (0.00-0.23); BASOPHILS PERCENT AUTO 0 % (0-2); EOSINOPHILS PERCENT AUTO 0 % (0-6); Hematocrit 39.7 % (37.0-53.0); Hemoglobin 13.7 g/dL (13.5-17.5); IMMATURE GRAN ABSOLUTE AUTO 0.03 K/mm3 (0.00-0.10); IMMATURE GRAN PERCENT AUTO 0 % (0-1); LYMPHOCYTES ABSOLUTE AUTO 0.43 K/mm3 (0.84-5.20); LYMPHOCYTES PERCENT AUTO 6 % (21-46); MONOCYTES ABSOLUTE AUTO 0.17 K/mm3 (0.16-1.47); MONOCYTES PERCENT AUTO 3 % (4-13); Mean Corpuscular HGB 36.3 pg (26.0-34.0); Mean Corpuscular HGB Conc 34.5 g/dL (31.5-36.5); Mean Corpuscular Volume 105 fL (80-100); Mean Platelet Volume 12.3 fL (9.1-12.4); NEUTROPHILS ABSOLUTE AUTO 6.07 K/mm3 (1.96-9.15); NEUTROPHILS PERCENT AUTO 91 % (41-73); Platelet Count 93 K/mm3 (150-400); RDW Coefficient Variation 13.5 % (11.7-14.2); RDW Standard Deviation 52.9 fL (35.1-46.3); Red Blood Cell Count 3.77 M/mm3 (4.30-5.90); White Blood Cell Count 6.71 K/mm3 (4.00-11.30)
[2022-11-10 07:17] LABS: Albumin/Globulin Ratio 0.8 (0.8-1.8); Bun/Creatinine Ratio 22.1 (12.0-20.0); Calcium, Blood 8.4 mg/dL (8.5-10.1); Creatinine, Blood 0.54 mg/dL (0.60-1.20); Globulin, Blood 3.7 g/dL (2.2-4.0); Magnesium, Blood 1.9 mg/dL (1.6-2.4); Phosphorus, Blood 3.6 mg/dL (2.5-4.9); Potassium, Blood 4.1 mmol/L (3.5-5.5); Total Protein, Blood 6.7 g/dL (6.4-8.2)
[2022-11-10 10:20] LABS: Anti-Xa UFH, PHA Monitoring <0.10 IU/mL; International Normalized Ratio 1.18; Prothrombin Time Results 12.3 Sec (9.7-11.5)
[2022-11-10 14:45] LABS: CPK Creatine Kinase 44 U/L (39-308)
[2022-11-10 14:49] LABS: Creatine Kinase MB <1.0 ng/mL (0.0-3.6); Creatine Kinase MB Index Unable to Calculate (0.0-4.0)
--- NOTE | 2022-11-10 15:37 | NUR ---
Echocardiogram completed.
[2022-11-10 17:49] LABS: CPK Creatine Kinase 72 U/L (39-308)
[2022-11-10 18:04] LABS: Creatine Kinase MB <1.0 ng/mL (0.0-3.6); Creatine Kinase MB Index Unable to Calculate (0.0-4.0)
--- NOTE | 2022-11-10 18:19 | NUR ---
END OF SHIFT SUMMARY NEURO: A/O X4, MEDICATED PER MAR FOR ELEVATED CIWA. NO VISUAL/AUDITORY HALLUCINATIONS. NOTED TREMORS. CARDIAC: ATRIAL FIB, ON AND OFF DILTIAZEM DRIP TO MAINTAIN HR < 100. STOPPED AT 1330 DUE TO HR 60-70. PT NOTED TO HAVE 2 SECOND PAUSES WITH SLOWER RATE. MD NOTIFIED. SBP LOW 70 AFTER MORPHINE AND NITRO SL, 500ML NS BOLUS GIVEN WITH GOOD RESULT, SBP INCREASED TO 110-115. 1 EPISODE OF CHEST PAIN THIS SHIFT AT 1300. EKG DONE X2, CARDIOLOGY CONSULT PLACED AND SUBSEQUENTLY CANCELLED. TROPONINS NEGATIVE, CP DECREASED TO 6/10 AFTER MEDICATION ADMINISTERED, PT ABLE TO SLEEP. ECHO DONE. RESP: RA, O2 SAT > 92% GI: EATING 75-100% OF ALL MEALS. C/O NAUSEA DURING EPISODE OF CHEST PAIN, RESOLVED. NO VOMITING. : VOIDS USING URINAL WITH STANDBY ASSIST AT BEDSIDE. URINE DARK TEA COLORED. SKIN: RASH TO BILATERAL LOWER EXTREMETIES. ATARAX GIVEN WITH MINIMAL RELIEF. IV: PIV X2, NS INFUSING AT 50ML/HR. HEPARIN DRIP INFUSING AT 13UNITS/KG/HR. MEDICATED X1 WITH LIBRIUM FOR ELEVATED CIWA (SEE EMR FOR DOCUMENTATION).
[2022-11-10 22:31] LABS: CPK Creatine Kinase 52 U/L (39-308)
[2022-11-10 23:00] LABS: Creatine Kinase MB <1.0 ng/mL (0.0-3.6); Creatine Kinase MB Index Unable to Calculate (0.0-4.0)
[2022-11-11 04:18] LABS: BASOPHILS ABSOLUTE AUTO 0.01 K/mm3 (0.00-0.23); BASOPHILS PERCENT AUTO 0 % (0-2); EOSINOPHILS PERCENT AUTO 0 % (0-6); Hematocrit 39.2 % (37.0-53.0); Hemoglobin 13.3 g/dL (13.5-17.5); IMMATURE GRAN PERCENT AUTO 1 % (0-1); LYMPHOCYTES ABSOLUTE AUTO 0.57 K/mm3 (0.84-5.20); LYMPHOCYTES PERCENT AUTO 4 % (21-46); MONOCYTES ABSOLUTE AUTO 0.65 K/mm3 (0.16-1.47); MONOCYTES PERCENT AUTO 4 % (4-13); Mean Corpuscular HGB 35.8 pg (26.0-34.0); Mean Corpuscular HGB Conc 33.9 g/dL (31.5-36.5); Mean Corpuscular Volume 106 fL (80-100); NEUTROPHILS PERCENT AUTO 92 % (41-73); NRBC ABSOLUTE 0.02 K/mm3 (0.00-0.02); NRBC Auto 0.1 /100 WBC (0.0-0.2); Platelet Count 86 K/mm3 (150-400); RDW Coefficient Variation 14.1 % (11.7-14.2); RDW Standard Deviation 55.2 fL (35.1-46.3); Red Blood Cell Count 3.71 M/mm3 (4.30-5.90); White Blood Cell Count 16.33 K/mm3 (4.00-11.30)
[2022-11-11 04:48] LABS: Albumin, Blood 2.8 g/dL (3.4-5.0); Albumin/Globulin Ratio 0.8 (0.8-1.8); Bilirubin, Total 0.7 mg/dL (0.1-1.0); Bun/Creatinine Ratio 22.6 (12.0-20.0); Creatinine, Blood 0.93 mg/dL (0.60-1.20); Globulin, Blood 3.4 g/dL (2.2-4.0); Potassium, Blood 4.5 mmol/L (3.5-5.5); Total Protein, Blood 6.2 g/dL (6.4-8.2)
[2022-11-11 05:16] LABS: Mean Platelet Volume 12.5 fL (9.1-12.4)
--- NOTE | 2022-11-11 05:35 | NUR ---
PT DID WELL OVERNIGHT, CARDIZEM TURNED OFF AT 0500 FOR INCREASED FEQUENCY OF PAUSES AND HR STAYING IN THE 70-90'S, SOFT B/P NOTED IN THE LAST COUPLE OF HOURS WELL, PT EASILY AROUSABLE AND MAPS IN THE 70'S, HEPARIN GTT AT 13 UNITS, PT UP TO BSC FOR BM, RASH ON BLE STABLE IN APPEARANCE, CIWA'S 8-11, LIBRIUM X 1, MS CONTIN X 1, AFEBRILE AND UO MINIMALLY ADEQUATE DESPITE NS AT 50ML/HR, WBC'S FROM 6 TO 16K OVERNIGHT BUT PT IS RECIEVING STEROIDS, SPUTUM CX UNCOLLECTED D/T PT NOT PRODUCING ANY FOR SPECIMEN, PLEASANT, COOPERATIVE AND APPRECIATIVE, WILL CONTINUE TO MONITOR UNTIL SHIFT CHANGE
--- NOTE | 2022-11-11 10:15 | NUR ---
TRANSFER: pt transferred to ICU 12 at 1015
[2022-11-11 10:31] LABS: Hematocrit 39.2 % (37.0-53.0); Hemoglobin 12.6 g/dL (13.5-17.5)
--- NOTE | 2022-11-11 10:45 | NUR ---
DR. SPENCE ORDERS FOR PICC LINE DUE TO HYPOTENSION, POSSIBLE NEED FOR PRESSORS. BP IMPROVED WITH FLUID BOLUS UPON TRANSFER TO ICU. WILL HOLD OFF ON PICC FOR NOW AND RE-ASSESS NEED IF BP TRENDS BACK DOWN.
[2022-11-11 10:49] LABS: International Normalized Ratio 1.46
--- NOTE | 2022-11-11 10:52 | NUR ---
PT C/O NEW ABD PAIN AND NAUSEA THIS AM, DOCTOR NOTIFIED AND ORDERS RECEIVED. PT REPORTED THAT HE FELT LIKE HE HAD TO HAVE A BM. THIS RN ATTEMPTED TO HELP THE PT TO THE BSC BUT BE BECAME TOO WEAK TO GET OUT OF BED OR SIT UP. THE PT WAS THEN HELPED ONTO THE BEDPAN BUT WAS UNABLE TO HAVE A BM. PT STARTED TO BECOME INCREASINGLY DIAPHORETIC AND CONFUSED. CIWA ASSESSED AND TREATED. PT CONTINUED TO BECOME MORE DIAPHORETIC, COOL, AND CYANOTIC. CHARGE NURSE CALLED TO BEDSIDE AND DOCTOR NOTIFIED OF PATIENT'S CONDITION. PT TRANSFERRED TO ICU ROOM 12 AND REPORT GIVEN TO ICU NURSE AT THE BEDSIDE.
--- NOTE | 2022-11-11 11:46 | NUR ---
Spoke with machine i cutter, Primary RN Mariam, and discussed case. Pt experienced change in condition, sweating profusely, and obtunded. Pt to be transfered to ICU. Attempted to call Pt's sister who is only contact lens assistant listed for Pt. No answer with no option to leave message. Phone just keeps ringing. Palliative Care will F/U for supportive visits.
[2022-11-11 12:18] LABS: PO2 Arterial 75.4 mmHg (80-100)
[2022-11-11 12:20] LABS: pH Blood Arterial 7.29 (7.35-7.45)
--- NOTE | 2022-11-11 18:42 | NUR ---
SHIFT SUMMARY: pt transferred to ICU 12 from PCU this morning. He received two liter boluses of LR. PG started in RUE. Cardizem was restarted for a short period, then placed on standby again due to bradycardia, long pauses, and BP trending down. This was discussed with Dr Young. Pt more alert now than he was initially upon arrival. He is sitting up and eating dinner independantly. He stood at bedside with PT.
--- NOTE | 2022-11-11 19:30 | NUR ---
ASSESSMENT/ASSUMED CARE PT SLEEPING, AWAKENS TO VERBAL AND TOUCH STIMULI. SPEECH CLEAR BUT SLOW. STATES,"I'M AT [facility] IN [place], [place] AND IT IS 192". REORIENTED TO PLACE AND TIME. CIWA 17. PT C/O HEADACHE AND NAUSEA. WILL OBTAIN ORDERS FOR MEDS. LUNGS CLEAR BUT DECREASED ON 2 LITERS O2 VIA NC. RESP EVEN AND NONLABORED. NONPRODUCTIVE COUGH NOTED. HEART RATE IRREGULAR-AFIB. BP STABLE. NO EDEMA NOTED. PT ABLE TO MOVE ALL EXT, BUT WEAK. RED RASH NOTED TO BILAT LOWER EXT. BT+ ABD SOFT AND NONTENDER. PT DENIES NEED TO VOID. IV 20G TO RIGHT HAND SALINE LOCKED, SITE CLEAR AND FLUSHED WITHOUT DIFFICULTY. POWER GLIDE TO RIGHT UPPER ARM WITH NS AT 50 ML/HR. SITE CLEAR AND DRSG INTACT. PT BACK TO SLEEP QUICKLY WHEN NOT DISTURBED. TALKED WITH DR SPENCE REGARDING HEADACHE AND NAUSEA, SHE WILL PLACE ORDERS.
--- NOTE | 2022-11-11 20:55 | NUR ---
MEDS PT MED WITH TYLENOL FOR HEADACHE, ZOFRAN FOR NAUSEA AND LIBRUIM FOR CIWA 17. HS MEDS GIVEN.
[2022-11-11 23:22] LABS: Source, Urine Foley catheter
[2022-11-11 23:25] LABS: Appearance, Urine Clear (Clear); Bilirubin, Urine Neg (Neg); Blood, Urine Neg (Neg); Color, Urine Yellow (P-Yellow); Glucose Qualitative, Urine Neg (Neg); Ketones, Urine Neg (Neg); Leukocyte Esterase, Urine Neg (Neg); Nitrite, Urine Neg (Neg); Protein, Urine 2+ (Neg); Urobilinogen, Urine 1+ (Normal)
[2022-11-11 23:32] LABS: Bacteria Rare /hpf; Granular Casts 0-2 /lpf (0); Red Blood Cells, Urine 0-2 /hpf (0-2); Squamous Epithelial Cells Rare /hpf (Few); White Blood Cells, Urine 0-2 /hpf (0-5)
[2022-11-12 04:22] LABS: Bun/Creatinine Ratio 21.8 (12.0-20.0); Calcium, Blood 7.9 mg/dL (8.5-10.1); Creatinine, Blood 1.1 mg/dL (0.60-1.20); Potassium, Blood 4.2 mmol/L (3.5-5.5)
[2022-11-12 04:23] LABS: Hematocrit 37.6 % (37.0-53.0); Hemoglobin 12.5 g/dL (13.5-17.5); Mean Corpuscular HGB 35.6 pg (26.0-34.0); Mean Corpuscular HGB Conc 33.2 g/dL (31.5-36.5); Mean Corpuscular Volume 107 fL (80-100); Platelet Count 76 K/mm3 (150-400); RDW Coefficient Variation 13.9 % (11.7-14.2); RDW Standard Deviation 55.6 fL (35.1-46.3); Red Blood Cell Count 3.51 M/mm3 (4.30-5.90)
--- NOTE | 2022-11-12 04:39 | NUR ---
pt sitting up in bed eating ice cream
[2022-11-12 05:07] LABS: BAND PERCENT MAN 6 % (0-8); BASOPHILS PERCENT MAN 0 % (0-2); EOSINOPHILS PERCENT MAN 0 % (0-6); LYMPHOCYTES PERCENT MAN 4 % (21-46); MONOCYTES PERCENT MAN 6 % (4-13); SEG NEUTROPHILS PERCENT MAN 84 % (41-73); TOTAL CELLS COUNTED 100
[2022-11-12 05:11] LABS: BASOPHILS ABSOLUTE AUTO 0.03 K/mm3 (0.00-0.23); BASOPHILS PERCENT AUTO 0 % (0-2); EOSINOPHILS PERCENT AUTO 0 % (0-6); IMMATURE GRAN ABSOLUTE AUTO 0.18 K/mm3 (0.00-0.10); IMMATURE GRAN PERCENT AUTO 1 % (0-1); LYMPHOCYTES ABSOLUTE AUTO 0.48 K/mm3 (0.84-5.20); LYMPHOCYTES PERCENT AUTO 3 % (21-46); MONOCYTES ABSOLUTE AUTO 1.45 K/mm3 (0.16-1.47); MONOCYTES PERCENT AUTO 8 % (4-13); Mean Platelet Volume 13.6 fL (9.1-12.4); NEUTROPHILS ABSOLUTE AUTO 17.07 K/mm3 (1.96-9.15); NEUTROPHILS ABSOLUTE MAN 17.28 K/mm3 (1.96-9.15); NEUTROPHILS PERCENT AUTO 89 % (41-73); NRBC ABSOLUTE 0.03 K/mm3 (0.00-0.02); NRBC Auto 0.2 /100 WBC (0.0-0.2); White Blood Cell Count 19.21 K/mm3 (4.00-11.30)
--- NOTE | 2022-11-12 05:24 | NUR ---
ELEVATED HEART RATE PT IN AFIB WITH HEART RATE 100-140'S. BP LOW. UNABLE TO RESTART CARDIZEM OR GIVEN LOPRESSOR DUE TO HYPOTENSION. MED WITH AM DOSE OF DIGOXIN
--- NOTE | 2022-11-12 05:34 | NUR ---
SHIFT SUMMARY PT RESTING QUIETLY AT THIS TIME. CIWA DURING THE NIGHT 17-19, MED WITH LIBRIUM. PT C/O NAUSEA AND HEADACHE DURING THE NIGHT RECEIVED TYLENOL AND ZOFRAN. PT TRIED TO VOID SEVERAL TIMES BUT WAS UNABLE. BLADDER SCAN FOR 587 ML. CONDE CATH PLACED. DRAININIG SHAVONNE URINE. PT UP TO [facility] WITH TWO ASSIST FOR LIQUID STOOL. POWER GLIDE TO RIGHT UPPER ARM, DRSG INTACT. NS AT 50 ML/HR. PT TAKING PO WITHOUT DIFFICULTY. CONT AFIB. HEART RATE UP TO 100-140 THIS AM. AM DOSE OF DIGOXIN GIVEN EARLY. PT ON O2 AT 2 LITER VIA NC. NONPRODUCTIVE COUGH NOTED. PT HAD SNACK OF ICE CREAM THIS AM. BED ALARM ON. REPORT TO ON COMING NURSE.
--- NOTE | 2022-11-12 07:15 | NUR ---
ASSUMED CARE OF PT AT 0715 BEDSIDE REPORT RECIEVED, PT APPEARS TO BE RESTING COMFORTABLY. HAS BEEN ORIENTED X1 BUT ABLE TO MAKE NEEDS KNOWN. AFIB WITH RATE 100-140, SBP 100'S. 2L NC DUE TO DESATURATION DURING SLEEP, EATING WELL, ZOFRAN FOR NAUSEA WITH GOOD RELIEF. CONDE TO GRAVITY, DRAINING WELL. SKIN UNCHANGED WITH RASH TO BILAT LOWER LEGS AND WARTS TO DEBBIE AREA. PIV TO RH AND PG TO WATSON, NS INFUSING AT 50ML/HR. NO FAMILY AT BEDSIDE. RN TO CONTINUE TO MONITOR.
--- NOTE | 2022-11-12 14:50 | NUR ---
Spoke with Dr Hatfield and discussed case. Pt may benefit from goals of care discussion. Imaging suggests hepato cellular carcinoma. Pt also has cirrhosis of the liver. Pt resting in bed and reports moderate pain in his back, neck, and bones. Engaged in therapeutic discussion regarding goals of care. Discussed consideration of consulting with oncologist to determine treatment options. Pt reports no intention to pursue treatment. Discussed comfort care and hospice as an option. Educated on comfort care philosophy with V/U made by Pt. Pt reports wishes to focus on comfort. Recieved verbal permission from Pt to call his sister Carmela. Placed comfort care order, comfort care order set, and continued maintenance medications for comfort as Pt is not immenent per V/O from Dr Hatfield. also agrees for Pt to recieve beer with each meal tray. Spoke with Caremanager Director Anh and discussed concerns regarding Pt's unhoused status and needing hospice. Palliative Care will remain available
--- NOTE | 2022-11-12 14:58 | NUR ---
Late Entry from Previous note. Attempte to call Pt's sister Carmela with no success. Phone just keeps ringing with no option to leave message.
--- NOTE | 2022-11-12 18:42 | NUR ---
END OF SHIFT SUMMARY: NEURO: A/O, DROWSY AFTER COMFORT CARE MEDICATIONS. ADMITTED ANXIETY AFTER DECISION TO TRANSITION TO COMFORT CARE. CODE STATUS CHANGED TO DNR. CARDIAC: A FIB 120'S PRIOR TO REMOVAL FROM MONITOR. CARDIAC MONITORING D/C'D WHEN COMFORT CARE ORDERED. RESP: 2L NC WHEN SLEEPING. GI: EATING 15-50% OF MEALS, BEERS ORDERED FOR LUNCH AND DINNER. : CONDE DRAINING SHAVONNE URINE. SKIN: RASH PRESENT. PT DENIES ITCHING TODAY. IV: PG AND PIV. BOTH SL. NO FAMILY AT BEDSIDE. ATTEMPTED X2 TO CALL PT'S SISTER PER HIS REQUEST. NO ANSWER. PT STATES HE HAS NOT COMMUNICATED WITH HER FOR APPROX 10 YEARS AND SHE MAY HAVE CHANGED HER PHONE NUMBER. PALLIATIVE CARE FOLLOWING.
--- NOTE | 2022-11-12 19:43 | NUR ---
ASSUMED CARE. DAYSHIFT ALREADY CALLED REPORT TO MEDICAL FLOOR RN WHO WILL BE TAKING THE PATIENT. PT IS ALERT, AGGITATED AT TIMES. ATTEMPTED TO GET OUT OF BED. STATES HE HAS TO URINATE, PULLING ON CATHETER. CATHETER KINKED, REPLACED STAT LOCK ON LEG. WILL MEDICATE FOR PAIN. RE-ORIENTED HIM TO CARE AND PLACE. CONTINUES TO ASK WHY HE IS HERE. WILL MEDICATE FOR PAIN.
--- NOTE | 2022-11-12 20:12 | NUR ---
MEDICATED FOR PAIN. CURRENTLY HE IS CALM AND KNOWS HE WILL BE TRANSFERRED TO ANOTHER FLOOR. WILL BE TRANSFERRED TO ROOM 336 WHEN ROOM IS READY.
--- NOTE | 2022-11-12 20:33 | NUR ---
UP TO COMMODE, SMALL SOFT YELLOW BM. VERY WEAK AND UNSTEADY ON FEET. BACK IN BED, LOTION TO LEGS HE REPORTS THEY BURN DUE TO DRY RASH. BED ALARM ON.
--- NOTE | 2022-11-12 20:50 | NUR ---
REPORT GIVEN TO ROOM 348 RN. PATIENT TRANSFERRED.
--- NOTE | 2022-11-13 17:55 | NUR ---
SHIFT SUMMARY: ON COMFORT CARE. SLEPT MOST OF THIS SHIFT. C/O BACK PAIN; MEDICATED WITH MSIR WITH ADEQUATE RELIEF. CONDE DRAINING ADEQUATE DARK YELLOW URINE. VERY POOR APPETITE, HAVING SOME DYSPHAGIA. WAS ABLE TO SHOWER WITH MAX ASSIST. GOT INTO CHAIR X 2. BED/CHAIR ALARMS IN USE.
--- NOTE | 2022-11-14 06:42 | NUR ---
A/OX2; SELF AND PLACE. DROWSY CONDE PATENT. RUE POWERGLIDE INTACT. PRN ANALGESICS FOR COMFORT PER ORDERS. LUNGS DIMINISHED. PRN ATROPINE GIVEN FOR EXCESSIVE SECRETION MANAGEMENT AND SUCTION SET UP AT BEDSIDE. BED ALARM SET. SLEEP PROMOTED. CALL LIGHT IN REACH; ENCOURAGED TO MAKE NEEDS KNOWN.
--- NOTE | 2022-11-14 14:41 | NUR ---
Comfort care visit - Pt sleeping soundly and did not wake to voice. I did not disturb him. RR 10/min, slightly sonorous with upper airway secretions noted with relaxed slow breaths. Rodriguez collection bag with dk yellow urine noted. Case conferenced with RN who states that pt had c/o lower back and some abd pain earlier. She medicated per eMar with PO analgesic. She also noted on her assessment, firmness of L lower abd area. In reviewing EMR, pt's last BM was documented 11/12. He has had minimal PO intake of food/fluids and needed some assist with PO intake at breakfast. He declined lunch intake. Pt does not have any preventative bowel program per eMAR currently. NO entered per protocol for bowel care order set for comfort care standard of care when taking pain medications. Pt did not demonstrate nonverbal indicators of pain or distress in his sleep or restlessness/agitation. Plan to f/u on BM and if s/s unrelieved with medications per eMAR at next visit tomorrow. All of above discussed with pt's bedside RN.
--- NOTE | 2022-11-14 19:18 | NUR ---
SHIFT SUMMARY PTN COMFORT CARE. TRANSFER FROM ICU. PTN DID REPORT LT-SIDED ABDOMINAL PAIN AND BOWEL CARE ORDERS STARTED. PTN COMFORTABLE OTHERWISE AND TREATED PER EMAR FOR C/O BACK PAIN. NO FURTHER C/O OF ABDOMINAL PAIN. AWAKE EARLIER IN DAY, ATE A FEW BITES AND HAD SOME FLUIDS AT BREAKFAST, BUT EVEN THOUGH WANTED TO STAY AWAKE FOR SOME OF FOOTBALL GAME, DID NOT. SKIPPED LUNCH AND DINNER, WITH JUST BITES OF APPLESAUCE WHEN TAKING MEDICATION. ORAL CARE DONE BY BOUBACAR WALLACE, LIP CARE. SOME SUCTION USED FOR SECRETIONS IN MORNING, BUT NOT IN AFTERNOON. PTN DID COUGH UP A SMALL AMOUNT OF PHLEGM EARLY AFTERNOON. CONTINUE TO MONITOR.
--- NOTE | 2022-11-15 04:42 | NUR ---
SHIFT SUMMARY NOC PT A/O X 3. PT IS ON COMFORT CARE. PT DID NOT HAVE C/O L SIDE ABD PAIN BUT PAIN IN THROAT AND WAS MEDICATED PER EMAR WHICH RELIEVED PAIN PT SLEPT FOR ALMOST ENTIRETY OF SHIFT. PT LUNGS WERE WET AND PT CANNOT COUGH UP SECRETIONS SO WALL SUCTION WAS USED TO REMOVE SECRETIONS AND ATROPINE DROPS WERE ADMINISTERED. PT WAS ABLE TO TAKE RX WITH APPLESAUCE. PT CONDE STILL PATENT AND DRAINING DARK YELLOW URINE TO GRAVITY. PT IS PENDINC D/C PLANNING. PT IS CURRENTLY RESTING IN BED WITH BED ALARM ON, BED IN LOWEST POSITION, AND CALL LIGHT WITHIN REACH. [facility].
--- NOTE | 2022-11-15 17:26 | NUR ---
SHIFT SUMMARY PT SLEEPY T/O SHIFT, WAKES UP WITH VERBAL STIMULI. MEDICATED FOR PAIN PER EMAR PROTOCAL. MECH SOFT DIET, ASSISTANCE WITH MEALS. PT GETS ALCOHOL WITH MEALS. THICK IT PLACED ON TRAY DUE TO SLIGHT COUGHING WITH SWALLOWING. CONDE PATENT AND DRAINING YELLOW URINE. NO ACUTE EVENTS DURING SHIFT. PT RECENTLY REPOSITIONED AND RESTING COMFORTABLY.
--- NOTE | 2022-11-15 23:53 | NUR ---
SHIFT SUMMARY (MID SHIFT) PT ON COMFORT CARE. PT AxOx2-3, MENTATION WAX AND WANING. PT JUMPED OUT OF BED x2 SAYING HE DIDN'T KNOW WHERE HE WAS. PT WAS REMINDED HE WAS IN THE HOSPITAL AND HE SEEMED COMFORTED AFTER REDIRECTED. PT GIVEN PAIN MEDS/ANXIETY MEDS x1 WITH RELIEF NOTED BY PHYSICAL RESTING. PT IS CURRENTLY RESTING IN BED. CALL LIGHT IN REACH. COMFORT CARE ASSESSMENTS UP TO DATE.
--- NOTE | 2022-11-16 06:31 | NUR ---
COMFORT CARE SUMMARY PATIENT MEDICATED FOR PAIN X2. PATIENT MEDICATED FOR ANXIETY X2. PATIENT SLEPT MOST OF SHIFT. PATIENT CONDE IS PATENT AND DRAINING TO GRAVITY. PATIENT CALM AND COMFORTABLE THROUGHOUT SHIFT.
--- NOTE | 2022-11-16 14:18 | NUR ---
Comfort Care Visit Pt resting in bed with his eyes closed. Pt remains with his eyes closed with moderate level of verbal stimuli. Pt appears comfortable with no S/S of distress at this time. Spoke with Primary RN Desiree and discussed case. No new concerns reported at this time. Palliative Care will remain available
--- NOTE | 2022-11-17 07:40 | NUR ---
POT FIRER SUMMARY PT ON COMFORT CARE. NO ACUTE EVENTS. CONT W/Q4 CC ASSESSMENTS. MED P/EMAR. ORAL MEDS WITHELD. NO ORAL INTAKE T/O THE SHIFT. CALL LIGHT ACCESSIBLE.
--- NOTE | 2022-11-17 09:56 | NUR ---
Comfort Care Visit Pt resting in bed with his eyes closed. Pt appears comfortable with no S/S of distress at this time. Pt non responsive to verbal stimuli. Spoke with Primary RN Philomena and discussed case. Palliative Care will remain available
--- NOTE | 2022-11-17 18:25 | NUR ---
SHIFT SUMMARY- PT SLEPT MOST OF THIS SHIFT. MEDICATED FOR PAIN NEEDED. CONDE IS PATIENT AND DRAINING. HIS BED IS IN THE LOW POSITION AND CALL LIGHT IS WITIN REACH.
--- NOTE | 2022-11-18 06:04 | NUR ---
VISUAL EDUCATION TEACHER SUMMARY COMFORT CARE. PT SLEEPING T/O MOST OF SHIFT. DIFFICULT TO AROUSE. DISORIENTED WHEN AWAKE. ROAD OILING TRUCK DRIVER ASSISTED W/MINIMAL ORAL INTAKE. MECH SOFT BECOMING TOO DIFFICULT FOR PT TO CHEW/SWALLOW. TOLERATED ICE CREAM AND THICK LIQUIDS OK W/HOB ELEVATED. MED PT PER EMAR. Q4 CC ASSESSMENTS. SUCTION AT BEDSIDE AND USED INTERMITTANTLY WITH PT TOLERATING MINIMALLY. PT CONT TO HAVE URINE OUTPUT. CALL LIGHT ACCESSIBLE. WILL CONT TO MONITOR.
--- NOTE | 2022-11-18 11:45 | NUR ---
Comfort Care Visit Pt resting in bed with his eyes closed. Pt wakes to verbal stimuli. Pt mumbles in coharently and drifts back to sleep. Pt appears comfortable with no S/S of distress at this time. Spoke with Pt's Primary RN Philomena and discussed case. No concerns reported at this time. Palliative Care will remain available
--- NOTE | 2022-11-18 17:03 | NUR ---
SHIFT SUMMARY- PT SLEPT MOST OF THIS SHIFT. HE RECIEVED A BED BATH THIS SHIFT. HE RECIEVED PAIN MEDICATION NEEDED. HIS BED IS IN THE LOW POSITON AND CALL LIGHT IS WITHIN REACH.
--- NOTE | 2022-11-19 06:22 | NUR ---
CEMENT DESPATCH OPERATOR SUMMARY COMFORT CARE. BEGINNING OF SHIFT PT WAS VERY ALERT AND AGITATED. PT STATED HE WANTS TO LEAVE HOSPITAL TONIGHT. TALKED WITH PT; AGREED TO STAY NIGHT AND REVISIT IN THE MORNING. MED F/PAIN AND AGITATION PER EMAR. CONT W/Q4 COMFORT ASSESSMENTS.
--- NOTE | 2022-11-19 10:43 | NUR ---
Comfort Care Visit Pt resting in bed with his eyes closed. Pt wakes to verbal stimuli. Pt mumbless incoharently but appears comfortable with no S/S of distress. Spoke with RN Candice Ward and discussed case. Sister has been contacted and she is agreeable to come in and sign paper work for Pt to go to [facility] on hospice. Spoke with Pt's Primary RN Joelle and discussed case. No new concerns reported at this time. Palliative Care will remain available
--- NOTE | 2022-11-19 19:57 | NUR ---
SHIFT SUMMARY- PT SEEMS TO BE RESTING COMFORTABLY. CALM AND COOPERATIVE. BED IS IN THE LOWEST POSITION WITH BED ALARM ON. RESPONDS TO VOICE. ABLE TO ASK FOR PAIN MEDICAITONS
--- NOTE | 2022-11-20 04:11 | NUR ---
SHIFT SUMMARY PATIENT ON COMFORT CARE. AXOX 3 WITH CONFUSION/DISORIENTED AT TIMES. OUT OF BED ATTEMPTS X TWO. PATIENT PROVIDED ALCOHOLIC BEVERAGE WITH MEAL ON DAY SHIFT. NOTED OPEN BEER CONTAINER ON RECORDER HELPER SEISMOGRAPH FROM DAYS. BEDREST AND NO IV ACCESS. CONDE PATENT AND DRAINING TO GRAVITY. REPORTED HE WANTED TO LEAVE HOSPITAL X ONE. DENIES CHEST PAIN, SOB, AND N/V. CALL LIGHT IN REACH. BED IN LOWEST POSITION AND ALARM ACTIVATED. WILL CONTINUE TO MONITOR UNTIL DAY SHIFT NURSE ASSUMES CARE.
--- NOTE | 2022-11-20 06:34 | NUR ---
PATIENT HAVING INCREASED CONFUSION. OUT OF BED ATTEMPT ACTIVATING BED ALARM. REPORTS HIS FRIEND IS IN THE BATHROOM. BR DOOR OPENED TO CONFIRM NO ONE IS IN BR. NOT REDIRECTABLE TO GET BACK INTO BED FOR OVER TEN MINUTES. THREE STAFF ASSIST FOR PATIENT SAFETY. PATIENT EVENTUALLY BACK IN BED. REPORTS WANTS TO LEAVE THE HOSPITAL. BED ALARM ON. WCTM.
--- NOTE | 2022-11-20 18:27 | NUR ---
SHIFT SUMMARY- PT HAS BEEN ALERT AND ORIENTEDX3 FOR MOST OF THE DAY. AT AROUND 1500 PT BECAME AGITATED AND CONFUSED AND TRIED TO LEAVE BED. PRN MEDICATIONS GIVEN PER ORDER. SEE EMAR. PT IS ABLE TO POSITION SELF IN BED. SUPPORT WITH PILLOWS ROTATED Q 2HRS WITH PILLOWS TO TRY AND ALEVIATE PRESSURE. REDNESS, IRRITATION, AND OPEN SKIN NOTED INBETWEEN BUTTOCKS TREATED WITH SKIN PROTECTENT. RED, IRRITATED AREA NOTED BETWEEN LEFT LEG AND SCROTOM. WHITE AREA NOTED ON PT TONGUE. SEE EMAR. PT IS AROUSABLE TO VOICE. ATE FEW BITES THROUGHOUT THE DAY PO INTAKE ABOUT 700ML FOR THE SHIFT. BED ALARM IS ON AND CALL LIGHT IS IN REACH.
--- NOTE | 2022-11-21 04:00 | NUR ---
SHIFT SUMMARY PATIENT ON COMFORT CARE. AXO 2-3 WITH CONFUSION. DRINKING BEER LEFT OVER FROM DAY SHIFT. SOMNULENT FIRST PART OF SHIFT. AROUSABLE TO VOICE. REPOSITIONED T/O SHIFT. NO IV ACCESS. DENIES CHEST PAIN, SOB, AND N/V. ROXANOL GIVEN FOR PAIN MANAGEMENT AND PO ATIVAN FOR ANXIETY TRYING TO GET OUT OF BED FOR THIRTY MINUTES. CONDE PATENT AND DRAINING. CALL LIGHT IN REACH. BED IN LOWEST POSITION AND ALARM ACTIVATED. WILL CONTINUE TO MONITOR UNTIL DAY SHIFT NURSE ASSUMES CARE.
--- NOTE | 2022-11-21 08:47 | NUR ---
PT'S BROTHER CALLED, , NICOLÁS BEACH
--- NOTE | 2022-11-21 14:36 | NUR ---
SISTER CAME TO SEE PT TODAY. SHE EXPRESSED CONCERNS ABOUT SIGNING ANY PAPERS THAT WOULD LEGALLY BIND HER TO CARE OR FINANCE FOR PT NEEDS. DISCUSSED WITH CHARGE NURSE FOR ADVISE. PT WILL TALK WITH PROFESSOR OF HISTORY TOMORROW FOR CLARIFICATION.
--- NOTE | 2022-11-21 18:38 | NUR ---
SHIFT SUMMARY- PT ALERT AND ORIENTED X2 AT 1200. CALM AND COOPERATIVE AND ABLE TO EXPRESS NEEDS. PT ATE FEW BITES OF FOOD FOR LUNCH AND DRANK ABOUT 200 ML. NO BM THIS SHIFT. 1 PRN MED GIVEN THIS SHIFT. REPOSITIONED Q 2HRS AND USED PILLOWS FOR EXTRA SUPPORT. PT IS CURRENTLY RESTING COMFORTABLY IN BED. BED IS IN THE LOWEST POSITION WITH THE BED ALARM ON AND CALL LIGHT IN REACH.
--- NOTE | 2022-11-22 04:19 | NUR ---
SHIFT SUMMARY PATIENT HAD NO ACUTE CHANGES. AXOX 2 WITH CONFUSION. ANSWERS BASIC QUESTIONS WHEN ASKED. PO ATIVAN GIVEN FOR ANXIETY/INSOMNIA. NO IV ACCESS. SLEPT MOST OF THE SHIFT BUT AROUSABLE WITH VOICE. CONDE PATENT AND DRAINING TO GRAVITY. DENIES CHEST PAIN, SOB, AND N/V. CALL LIGHT IN REACH. BED IN LOWEST POSITION. WILL CONTINUE TO MONITOR UNTIL DAY SHIFT NURSE ASSUMES CARE.
--- NOTE | 2022-11-22 18:10 | NUR ---
SHIFT SUMMARY: PT A&O X1-2. ABLE TO TELL ME HIS NAME AND NAME OF BARBER SHOP MANAGER BUT COULD NOT TELL ME WHERE WE ARE AND STATING HE NEEDS TO GET UP TO MAKE HIS APTS. PT HAS BEEN IMPULSIVE TO GET OUT OF BED SEVERAL TIMES TODAY. REORIENTED PT AND IS UPSET THAT HE HAS TO STAY ON BEDREST. PT CURRENTLY HAS SMALL COUGH W/O SPUTUM/PHLEGM. CONDE IN PLACE DRAINING TO GRAVITY. WILL CONTINUE TO MONITOR.
--- NOTE | 2022-11-22 22:55 | NUR ---
CALLED HOSPITALIST PT IS AGITATED AND RESTLESS STILL. SEE PREVIOUS NOTE. FREQUENTLY ATTEMPTING TO EXIT BED. HIGH FALL RISK, VERY UNSTEADY ON HIS FEET. NEW ORDERS IN EMAR
--- NOTE | 2022-11-23 04:32 | NUR ---
SHIFT SUMMARY ADMITTED FOR RAPID AFIB. DNR CODE/COMFORT CARE. PLAN IS FOR HOSPICE PLACEMENT. PUREE/FEEDER DIET. CONDE IN PLACE. ON RA. CONFUSED AND IMPULSIVE. UNSTEADY AND WEAK ON HIS FEET. ANXIETY MEDICATIONS REQUIRED THIS SHIFT. MEDICATION FOR THRUSH IS SCHEDULED. A&O TO SELF. HX OF HOMELESSNESS. OCCASIONAL COUGH NOTED.
--- NOTE | 2022-11-23 06:11 | NUR ---
COMFORT ASSESS PT STATES HE WAS IN PAIN. HE DOES HAVE CHRONIC BACK PAIN. PAIN MEDICATION EFFECTIVE.
--- NOTE | 2022-11-23 11:22 | NUR ---
Comfort Care Visit Pt resting in bed with his eyes closed. Pt appears comfortable with no S/S of distressed at this time. Pt left undisturbed at this time. Spoke with RN Candice Ward and discussed case. Palliative Care will remain available
--- NOTE | 2022-11-23 18:02 | NUR ---
SHIFT SUMMARY: NO ACUTE CHANGES WITH PT THIS SHIFT. PAIN MEDICATION GIVEN TWICE FOR 7/10 PAIN. PT HAS BEEN VERY LETHARGIC THROUGHOUT THE SHIFT. PT RECEIVED BED BATH FROM BOUBACAR NOGUERA. PT HAS NOT ATTEMPTED TO GET OUT OF BED W/O ASSISTANCE. CALL LIGHT IN REACH. BED IN LOWEST POSITION. WILL CONTINUE TO MONITOR.
--- NOTE | 2022-11-24 04:58 | NUR ---
SHIFT SUMMARY 62 YR M ON COMFORT CARE. DNR. PT WAS FOUND ON THE FLOOR THIS SHIFT AND IT WAS ASSUMED THAT HE FELL. HE DINIED PAIN OR INJURY AND WAS PUT BACK IN BED W/O INCIDENT. HE WAS IMPULSIVE ONE OTHER TIME TO GET OUT OF BED W/O ASKING FOR ASSISTANCE BUT WAS EASILY REDIRECTED AFTER BEING REPOSITIONED AND MADE COMFORTABLE. HE APPEARS TO BE VERY CONFUSED AND NOT KNOW WHAT HE IS DOING OR WHY. BED IN LOW POSITION WITH ALARM ON, AND CALL LIGHT WITHIN REACH.
--- NOTE | 2022-11-24 19:37 | NUR ---
SHIFT SUMMARY PTN CONTINUES COMFORT CARE. PTN WAS AWAKE FIRST OF SHIFT, TOOK ONLY A FEW BITES OF BREAKFAST. HE HAS SLEPT MOST OF SHIFT WITH NO UNTOWARD EVENT. DR MCFADDEN PRESCRIBED SOME CREAM FOR DRY SKIN TO FACE AFTER HE COMPLAINED OF SOME ITCHING/BURNING SKIN. A WARM WASHCLOTH FELT GOOD. CONTINUE TO FOLLOW.
--- NOTE | 2022-11-25 05:37 | NUR ---
PATIENT CONFUSED AND WANTING TO GET OUT OF BED TO GO SOMEWHERE, I WAS ABLE TO REDIRECT PATIENT ON MULTIPLE OCCASIONS, OTHERWISE PLEASANT, 22 LFA PLACED FOR IV ATIVAN, NO OXYGEN, CONDE IN PLACE WITH TEA BROWN URINE, PUREE DIET, ROXANOL GIVEN FOR PAIN, PATIENT RESTED WELL
--- NOTE | 2022-11-25 10:40 | NUR ---
Comfort Care Visit Pt resting in bed upon arrival. Pt inquires about when he will be D/C. Deferred question for RN Caremanager. Offered supportive visit and provided extra blanket per Pt's request. Palliative Care will remain available
--- NOTE | 2022-11-25 18:01 | NUR ---
SHIFT SUMMARY PTN COMFORT CARE. THIS SHIFT PTN WAS SOMEWHAT MORE AGITATED AND FIGITY, TRYING TO GET OUT OF BED. TALKS ABOUT FINDING HIS BOOTS, AND SAYS HE WILL NEED TO GO BUY MORE BOOTS. PTN TO COMMODE, VERY WEAK AND 2-PERSON ASSIST NEEDED. NO STOOL, BUT PASSED GAS. PTN MEDICATED PER EMAR. CONTINUE COMFORT CARE.
--- NOTE | 2022-11-26 05:06 | NUR ---
SHIFT SUMMARY: PT A&O X2, CONFUSED, NEEDS REDIRECTION AND FOLLOWS DIRECTIONS. PT SHOWED S/S OF AGITATION, INCRREASED CONFUSION, MILD TREMORS AND PAIN. PT MEDICATED WITH ATIVAN 2MG PO, MORPHINE 10MG/0.5ML, AND A DRINK OF BEER. PT ABLE TO FOLLOW DIRECTIONS TO LAY BACK INTO BED. PT ON REASSESSMENT CONTIUNE TO GET OUT OF BED AND CONFUSION. PT MEDICATED WITH MORPHINE 20MG/ML PO, ON REASSESSMENT PT CALMED DOWN AND LAYED IN BED. PT ON REASSESMENT RESTING IN BED NO S/S OF DISTRESS, AGITATION OR PAIN. PT SLEPT FOR SERVERAL HOURS W/O ANY S/S OF DISTRESS. PT HAD MILD WET BRERATHING AND RECEVIED ATROPINE 3 DROPS PO. ON REASSESMENT HAD DECREASED WET BREATHING AND SNORING. PT RECEVIED CATHCARE, FACIAL WASH AND MOUTH CARE. PT LITTLE TO NO ORAL INTAKE AND OUTPUT IN CONDE CATHETER BAG. PT SHOWING SIGNS OF MOTTLING IN BLE AND COOL TO TOUCH. PT RESTING IN BED, BED ALARM ARMED AND CALL LIGHT WITHIN REACH.
--- NOTE | 2022-11-26 10:26 | NUR ---
RN NOTE MR YING IS SLEEPY TODAY, DOES OPEN HIS EYES TO SPEACH. MOIST COUGH, HAS SCOPOLOMINE PATCH ON AND ATROPINE DROPS. DENIED PAIN EARIER, BUT DID C/O MEDIUM SCALE ABDOMINAL PAIN NOW, GIVEN PO MORPHINE. TAKING A FEW SIPS OF WATER BUT DID NOT HAVE ANYTHING FROM BREAKFAST TRAY. ORAL CARE WITH SXN, TURNS Q2HRS. BED LOW, CALL LIGHT IN REACH. BED ALARM ON.
--- NOTE | 2022-11-26 12:56 | NUR ---
Comfort Care Visit Pt resting in bed with his eyes closed. Pt appears comfortable with no S/S of distress at this time. Pt left undisturbed at this time. Palliative Care will remain available.
--- NOTE | 2022-11-26 17:31 | NUR ---
SHIFT SUMMARY MR BEACH HAS BEEN CALM TODAY, MEDICATED INTERMITTANTLY FOR ABDOMINAL AND BACK DISCOMFORT AND SECRETIONS. FREQUENT ORAL CARE AND SUCTIONING DONE. Q2 HOURLY TURNS AND REPOSITIONING. HARD TO TEST ORIENTATION MOST WORDS ARE HARD TO DECIPHER. ABLE TO ANSWER SOME YES/NO QUESTIONS. HE HAS NOT EATEN TODAY, TOOK SIPS OF WATER AND BEER. HIS SISTER AND ANOTHER VISITOR CAME TO VISIT TODAY. CONDE WITH LOW UOP SHAVONNE COLORED URINE. BED LOW, BED ALARM ON, CALL LIGHT IN REACH.
--- NOTE | 2022-11-27 06:40 | NUR ---
Shift Summary Pt on comfort care. He slept through most of the night, waking up this morning and confirming he is in pain, medicated per emar. Pt coarse breath sounds with audible secretions, though it seems to have cleared up this AM as patient is coughing better and clearing them out. Gave PRN Atropine once last night to help with secretions. Pt confused and disoriented, he does understand some questions and can answer with yes or no. Pt awake this AM and picking at the air and his blanket. He appears comfortable and not in any pain or distress.
--- NOTE | 2022-11-27 10:10 | NUR ---
RN NOTE PT RESTING IN BED SLEEPING NOW, DIFFICULT TO AROUSE. HE WAS MORE ALERT, EYES OPEN AND LOOKING AROUND THIS MORNING, JUICE CAN IN HIS HAND. FOSTER CARE INTERVIEWER AT BEDSIDE NOW. BED ALAM ON, BED LOW.
--- NOTE | 2022-11-27 16:52 | NUR ---
SHIFT SUMMARY MR BEACH HAS BEEN INTERMITTANTLY VERY SLEEPY AND AWAKE AND LOOKING AROUND HIM TODAY. HIS VOICE IS DIFFICULT TO UNDERSTAND, BUT HE'S GENERALLY ABLE TO SAY YES/NO TO QUESTIONS ABOUT PAIN AND IF HE NEEDS PAIN MEDICATIONS. TURNED AND REPOSTIONED Q2HRS. CONDE TO BEDSIDE DRAINAGE WITH LOW VOLUME SHAVONNE UOP. FOSTER FAMILY INTERVIEWER CAME TODAY, SHE PLANS TO F/U WITH A DECISION TUESDAY OR TUESDAY. VERY POOR INTAKE TODAY. OCCASIONAL COUGHING, RESPIRATIONS SEEM EASIER AND LESS MOIST TODAY. BED LOW, BED ALARM ON, CALL LIGHT IN REACH.
--- NOTE | 2022-11-28 06:02 | NUR ---
PATIENT ADMITTED OVERNIGHT FOR CPOD EXACERBATION. CURRENTLY ON 3L NC, BASELINE IS 2L. PATIENT ON CONT PULSE OX AND TELE MONITOR. PATIENT REPORTS HIS BREATHING FEELS BETTER NOW. PLAN FOR ECHO TODAY. CALL LIGHT IN REACH.
--- NOTE | 2022-11-28 06:12 | NUR ---
NO ACUTE EVENTS OVERNIGHT. ASSUMED CARE AT 2300. PATIENT ON COMFORT MEASURES. PATIENT HAS BEEN RESTING COMFORTABLY SINCE ASSUMING CARE. CONDE IN PLACE WITH RELATIVELY NO OUTPUT OVERNIGHT. CALL LIGHT IN REACH.
--- NOTE | 2022-11-28 19:00 | NUR ---
SHIFT SUMMARY PT ALERT TO SELF. PT SLEPT FOR MOST OF MORNING. DURING AFTERNOON PT WAS ATTEMPTING TO GET OUT OF BED SEVERAL TIME. PT STATED HE NEEDED TO GO TO THE STORE. PT APPEARED CONFUSED AT THIS TIME AND WAS HAULISINATING THAT OTHER PEOPLE WERE IN HIS ROOM. PT DENIED PAIN. PT CALMED WHEN GIVEN SIPS OF HIS BEER. SISTER AT BEDSIDE BUT PT WAS SLEEPING. VSS. VERY LITTLE OUTPUT. REPORT GIVEN TO COMPUTER TECHNOLOGY TEACHER NURSE.
--- NOTE | 2022-11-29 04:34 | NUR ---
CREAM DUMPER SUMMARY NO ACUTE EVENTS. PT ALERT AT BEGINNING OF SHIFT. ABLE TO ANS YES/NO QUESTIONS. VERBAL COMMUNICATION MUMBLED/DIFFICULT TO UNDERSTAND. PT REPORTS BEING WHEN AWAKE. AUDIBLE GURGLE; PT ABLE TO CLEAR SECRETIONS ON HIS OWN MOST OF THE TIME. SUCTION IS AVAILABLE AT BEDSIDE BUT NOT USED DURING SHIFT. MED P/EMAR. CONDE IN PLACE; DRAINING TO GRAVITY. VERY LITTLE OUTPUT. CALL LIGHT ACCESSIBLE BUT PT HAS NOT USED LIGHT TO REACH STAFF; ROUNDING REGULAR INTERVALS.
--- NOTE | 2022-11-29 16:51 | NUR ---
COMFORT CARE SUMMARY PATIENT IS ALERT AND ORIENTED TO SELF. PATIENT IS ON COMFORT CARE. PATIENT HAS NOT HAD ANY ACUTE EVENTS THIS SHIFT. PATIENT HAS BEEN MEDICATED WITH ROXINOL ONCE THIS SHIFT. PATIENT HAS BEEN OFF AND ON ASLEEP MOST OF SHIFT. COMFORT CARE ASSESSMENTS DONE Q4. BED IN LOCKED AND LOWEST POSITION. CALL LIGHT IN PLACE. WILL MONITOR UNTIL SHIFT CHANGE.
--- NOTE | 2022-11-30 03:16 | NUR ---
ASP NET SOFTWARE DEVELOPER SUMMARY NO ACUTE EVENTS THROUGHOUT THE NIGHT. A&O TO SELF. PATIENT EFFECTIVELY COMMUNICATES NEEDS. RR EVEN AND UNLABORED ON RA. PAIN ASSESSED AND MEDICATED PER ORDERS. BED LOW AND LOCKED. CALL LIGHT WITHIN REACH. THIS RN WILL CONTINUE TO MONITOR.
--- NOTE | 2022-11-30 11:36 | NUR ---
Comfort Care Visit Pt resting in bed upon arrival. Pt is pleasantly confused and denies pain at this time. Offered supportive visit and encouraged Pt to do word search puzzlies to help pass the time. Continued supportive visit. Palliative Care will remain available
--- NOTE | 2022-11-30 11:50 | NUR ---
NOTE PT AWKAE AND ALERT. FREQUENTLY TRYING TO CLIMB OOB. BED ALARM ON. HE ASKED FOR HIS BACK PACK BECAUSE HE "NEEDED" TO SMOKE WEED. ASKED HIM IF HE WAS FEELING ANXIOUS HE STATED WELL DUH!. OFFERED HIM ATIVAN AND PAIN MEDICATION. HE AGREED. CONTINUE POC.
--- NOTE | 2022-11-30 13:03 | NUR ---
NOTE PT RESTING QUIETLY. AWAKENS EASILY TO VOICE. CONTINUE POC.
--- NOTE | 2022-11-30 16:41 | NUR ---
EVENING NOTE PT RESTING QUIETLY. HE AROUSES EASILY THEN FALLS BACK TO SLEEP. ATIVAN 2MG X1 GIVEN ALONG WITH MS IR 15MG X1. ROXANOL DID NOT SEEM TO HELP HIS RESTLESSNESS/PAIN. PT HAD TUGGED ON HIS CONDE THIS MORNING. WASHED BLOOD FROM AROUND THE MEATUS. CREAM APPLIED TO PENILE HEAD. NO FURTHER BLOODY DISCHARGE NOTED. CONDE PATENT. SMALL OUTPT. CONTINUE POC.
--- NOTE | 2022-12-01 04:16 | NUR ---
METER TESTER SUMMARY NO ACUTE EVENTS THROUGHOUT THE NIGHT. A&OX1. PATIENT EFFECTIVELY COMMUNICATES NEEDS, BUT DOES REQUIRE FREQUENT RE-ORIENTATION DURING CONVERSATION. PAIN AND ANXIETY/AGITATION MEDICATED PER EMAR. CONDE DRAINING TO GRAVITY. NUTRITION AND PO INTAKE ENCOURAGED TOLERATED. BED LOW AND LOCKED. CALL LIGHT WITHIN REACH. THIS RN WILL CONTINUE TO MONITOR.
--- NOTE | 2022-12-01 15:41 | NUR ---
RESTLESS PT RESTLESS. MEDCAITED WITH ATIVAN 1MGX2 AND MSIR 15MG X1. JUST GAVE HIME ROXANOL 20MG. HE IS GETTING HIS BEER AGAIN WHICH HE REALLY LIKES. AFTER THE LOOM CLEANER SAW HIM, HE WAS CRYING THINKING HE WAS BEING KICKED OUT ONTO THE STREET. REASSURED HIM AND REORIENTED HIM TO WHERE HE IS. HE REALLY LIKES WARM BLANKETS AND MUSIC. CONTINUE POC.
--- NOTE | 2022-12-02 04:15 | NUR ---
NUT GRINDER SUMMARY NO ACUTE EVENTS THROUGHOUT THE NIGHT. A&OX TO SELF. RR EVEN AND UNLABORED ON RA. AGITATION/ANXIETY, PAIN MEDICATED PER EMAR. BED LOW AND LOCKED. CALL LIGHT WITHIN REACH. THIS RN WILL CONTINUE TO MONITOR.
--- NOTE | 2022-12-02 18:18 | NUR ---
DAY SHIFT STUDENT MUCKING MACHINE OPERATOR PATIENT ON COMFORT CARE. DNR. NO ACUTE EVENTS THROUGHOUT THE DAY. A&O TO SELF. JaylynTENT SLEPT MOST THE DAY. RR EVEN AND UNLABORED ON RA. WHEN AWAKE AGITATED/ANXIETY NOTED. PATIENT COMPLAINED OF ALL OVER PAIN. PAIN MED GIVEN ONVE PER EMAR. FOLET DRAINING TO GRAVITY. NUTRITION AND PO INTAKE ENCOURAGED TOLERATED, NO NUTRITIONAL INTAKE TODAY. PATIENT DID TAKE A FEW SIPS OF WATER. DECLINED BEER. PATIENTS SISTER MATTHEW VISITED SHORTLY. BED LOW AND LOCKED. CALL LIGHT WITHIN REACH. WILL CONTINUE TO MONITOR UNTIL MANAGER BUSINESS PROCESS.
--- NOTE | 2022-12-03 06:45 | NUR ---
HULL DRAFTER SUMMARY: A&O SELF ONLY. DOES NO CALL AND IS UNABLE TO COMMUNICATE NEEDS EFFECTIVELY. BED ALARM ARMED D/T IMPULSIVENESS AND GETTING UP WITHOUT CALLING. FALL AROUND 0530 D/T FEELING THOUGH HE NEEDED TO VOID IN SPITE OF CONDE PLACEMENT. NO C / O PAIN AT TIME OF FALL, BUT AFTER GETTING HIM BACK INTO BED, C / O PAIN 10/10 THAT WAS A 7/10 PRIOR TO FALL. WILL DISCUSS NEED FOR CAMERA SURVEILLANCE WITH SNOUT PULLER. DOES NOT LOCATE AREA OF PAIN AND DOES NOT ATTRIBUTE IT TO FALL. CONDE PATENT AND DRAINING PINK URINE TO GRAVITY. AWAITING PLACEMENT TO FOSTER HOME WITH HOSPICE. WILL REPORT TO ONCOMING RN.
--- NOTE | 2022-12-03 14:49 | NUR ---
Comfort Care Visit Pt resting in bed upon arrival. Pt confused and appears more anxious in compared to previous visit. Mottling noted on BLLE. Offered gentle voice and supportive visit. Spoke with covering RN and discussed case. Pt may benefit from comfort medication. Pt apppears to be experiencing some terminal restlessness. Palliative Care will remain available.
--- NOTE | 2022-12-03 19:04 | NUR ---
PT SLEPT FOR APROX 3HRS THIS AFTERNOON. PT AT THIS TIME REMAINS CALM. ENCOURAGED TO EAT, HOWEVER, REFUSING PER CLIENT ACCOUNT ASSISTANT. CALL LIGHT IN REACH.
--- NOTE | 2022-12-03 22:49 | NUR ---
CALL FROM PT'S BROTHER, NICOLÁS, WHO WAS REQUESTING UPDATE. SPOKE WITH BROTHER AFTER CONFIRMING HE WAS ON PATIENT'S RELEASE OF INFORMATION.
--- NOTE | 2022-12-04 07:32 | NUR ---
OPTICAL GLASS INSPECTOR SUMMARY: ONE DOSE HALDOL LAST NIGHT AND STILL APPEARED ANXIOUS SO PRN MORPHINE AND ATIVAN ADMINISTERED AND SLEPT REMAINDER OF SHIFT. SPOKE WITH BROTHER, NICOLÁS, TO GIVE UPDATE. NO ACUTE EVENTS T/O THE NIGHT. WILL REPORT TO ONCOMING RN.
--- NOTE | 2022-12-04 09:00 | NUR ---
pt has climbed out of bed several times this am and is not redirectable, states he's going for a walk, not oriented, or able to follow commands, lungs are clear dim in bases, on r/a, resp even and unlabored, no cough noted, hrr, has a rodriguez cath draining tea colored urine, pt not cognizant of line and tubes, bed alarm is activated, skin is mottled from knees down, sherley bonilla, call light in reach.
--- NOTE | 2022-12-04 14:51 | NUR ---
pt transfered to special care unit. report given to recieving nurse, all belongings went with pt.
--- NOTE | 2022-12-04 16:41 | NUR ---
PATIENT TRANSFERED FROM [facility], COMFORT CARE, IMPULSIVE GETTING OUT OF BED, RESTING NOW MEDICATED WITH ZYPREXA AND RESP EVEN AND NONLABORED
--- NOTE | 2022-12-05 16:45 | NUR ---
CASE CONF WITH RN, PT SLEEPING MOST OF THE TIME, AGITATION AND RESTLESSNESS IS MANAGED WITH CURRENT MEDICATION ORDERS. PT WILL OPEN EYES TO VERBAL STIMULATION, NO MOTTLING NOTED, SKIN/EXT ARE WARM TO THE TOUCH. PT IS NOT EATING. PALLIATIVE CARE WILL CONT TO FOLLOW.
--- NOTE | 2022-12-05 18:34 | NUR ---
VERY GARBLED SPEECH, SLEPT THE WHOLE DAY, PATIENT ENCOURAGED TO EAT DINNER, ONLY ORIENTED TO SELF, VERY CONFUSED AND UNCONSOLABLE AT TIMES, MEDICATED WITH HARDIK AND ZYPREXA, NO ACUTE CHANGES, COMFORT CARE, WILL RELAY TO PM RN
--- NOTE | 2022-12-06 04:27 | NUR ---
Summary: Patient on comfort measures. Restless and trying to get out of bed at start of shift. Gave PRN meds and patient rested comfortably in bed the rest of the night. Set up suction at bedside and used prn.
--- NOTE | 2022-12-06 17:04 | NUR ---
Comfort care visit made and case conferenced with bedside RN. Pt had just been repositioned. Dk urine/scant amount in rodriguez drainage bag. Pt is warm and diaphoretic to touch. Butler removed, sheet left to cover and thermostat temp in room lowered. Pt's RR 30-36/min. Reviewed eMAR with RN and recommended giving Ativan with Roxanol SL with next dose. Pt looks comfortable and does not appear restless with exception of tachypnea. RN reports increased secretions and those are noted at the time of my visit also. Pt has scopolomine patch applied, atropine being given per eMAR and oral suctioning performed per RN. Pt appears to be actively dying at this time. No family at bedside.
--- NOTE | 2022-12-06 17:31 | NUR ---
SHIFT SUMMARY: COMFORT CARE. HAD PRODUCTIVE COUGH EARLY THIS SHIFT WITH THACKER SPUTUM, REQUIRED SUCTIONING, HAS SINCE RESOLVED. IS TACHYPNEIC WITH RR 40'S AND SHALLOW. MEDICATED FOR PAIN AND AIR HUNGER. IS UNRESPONSIVE AT THIS TIME.
--- NOTE | 2022-12-07 03:21 | NUR ---
SHIFT SUMMARY NOC PT ON COMFORT CARE AND STILL UNRESPONSIVE TO VERBAL/PHYSICAL STIMULI. PT HAS HAD LIQUID MORPHINE FOR AIRHUNGER, ATIVAN FOR ANXIETY, AND ATROPIN DROPS AND SCOPALOMINE PATCH IN PLACE FOR EXCESS SECRETIONS. PT HAS BEEN SUCTIONED PRN FOR SECRETIONS PT HAS BEEN ABLE TO COUGH UP. PT RESPIRATIONS HAVE BECOME RAPID, SHALLLOW, AND LABORED. PT HAS CONDE IN PLACE DRAINING PINKISH URINE TO GRAVITY AND SCANT OUTPUT. PT HAS MOTTLING T/O AND WARM TO TOUCH. PT IS CURRENTLY UNRESPONSIVE WITH BED IN LOWEST POSITION.
--- NOTE | 2022-12-07 11:17 | NUR ---
Comfort Care visit. Pt unresponsive, even with personal care performed with face washing. Resp even, with much lower rate than noted yesterday afternoon. RR 28-30/min. Less resp effort/distress noted today and less audible upper airway secretions noted. Rodriguez cath with extremely dk, scant UO in drainage bag & tubing. NIGHT STOCKER/nursing had just repositioned pt. I did not note any nonverbal indicators of pain, anxiety, restlessness or distress at the time of my visit. Requested Pal Care Volunteer visit today. No family or visitors in room.
--- NOTE | 2022-12-07 18:32 | NUR ---
SHIFT SUMMARY: ON COMFORT CARE. PT'S SISTER VISITED MOST OF THE AFTERNOON. AT ~ 1400, PT AWAKENED, CONFUSED, COUGHING. WAS AWAKE FOR ~ 2 HOURS WHILE HIS SISTER WAS HERE. DURING THAT TIME, HE BECAME A LITTLE AGITATED, WAS WEAKLY TRYING TO GET OOB. MULTIPLE MEDICATIONS GIVEN AND PT CALMED DOWN. FINALLY WENT TO SLEEP AROUND 1630, BUT THEN WOKE UP AGAIN AT ~ 1730 AND WAS MEDICATED ONCE AGAIN. AT THE TIME OF THIS NOTE, PT IS RESTING COMFORTABLY, BREATHING IS EVEN AND UNLABORED. CONDE DRAINED ABOUT 50 ML OF DARK SHAVONNE URINE.
--- NOTE | 2022-12-08 02:10 | NUR ---
SHIFT SUMMARY NOC PT ON COMFORT CARE. DAY SHIFT REPORTED THAT PT WOKE UP BRIEFLY AND WAS HIGHLY AGITATED AND WAS MEDICATED PER EMAR. PT HAS BEEN UNRESPONSIVE DURING SHIFT BUT HAS SHOWN NO S/S OF AIRHUNGER OR PAIN. PT FAMILY CALLED TO RECEIVE UPDATE ON PT CONDITION AND WERE TOLD THAT PT IS BEING KEPT COMFORTABLE POSSIBLE. PT LUNGS SOUNDS HAVE RHONCHI BLUL AND DIM IN OTHER BRADY. RESPIRATORY RATE IS 20+ AND SHALLOW. PT HAS MOTTLING BLE AND IS STARTING TO BECOME COLD TO THE TOUCH IN FEET. PT IS CURRENTLY UNRESPONSIVE AND APPEARS TO BE COMFORTABLE.
--- NOTE | 2022-12-08 03:40 | NUR ---
SHIFT SUMMARY NOC PT ON COMFORT CARE. DAY SHIFT REPORTED THAT PT WOKE UP BRIEFLY AND WAS HIGHLY AGITATED AND WAS MEDICATED PER EMAR. PT HAS BEEN UNRESPONSIVE DURING SHIFT BUT HAS SHOWN NO S/S OF AIRHUNGER OR PAIN. PT FAMILY CALLED TO RECEIVE UPDATE ON PT CONDITION AND WERE TOLD THAT PT IS BEING KEPT COMFORTABLE POSSIBLE. PT LUNGS SOUNDS HAVE RHONCHI BLUL AND DIM IN OTHER BRADY. BREATHING HAS BECOME HYPOPNEIC. PT HAS MOTTLING BLE AND IS STARTING TO BECOME COLD TO THE TOUCH IN FEET. PT IS CURRENTLY UNRESPONSIVE AND APPEARS TO BE COMFORTABLE.
--- NOTE | 2022-12-08 09:07 | NUR ---
Comfort Care Visit Pt resting in bed with his eyes opened. Pt attempts to verbally respond with only quiet mumble. Pt appears comfortable with no S/S of distress at this time. Spoke with Pt's Primary RN Philomena and discussed case. Pt just received comfort medication. No new concerns at this time. Palliative Care will remain available.
--- NOTE | 2022-12-08 17:00 | NUR ---
SHIFT SUMMARY- PT SLEPT MOST OF THIS SHIFT. HE IS RECIEVING PAIN MEDICATIONS PRN.HIS SISTER WAS AT BEDSIDE THIS SHIFT. HE IS NOT EATING. HIS BED IS IN THE LOW POSITOIN AND CALL LIGHT IS WITIN REACH.
--- NOTE | 2022-12-09 02:01 | NUR ---
SHIFT SUMMARY NOC PT SLEPT MAJORITY OF SHIFT. PT RECEIVED PAIN RX FOR AIRHUNGER AND ATIVAN FOR ANXIETY. NEW SCOPALAMINE PATCH PLACED BEHIND R EAR TO CONTROL SECRETIONS. SUCTIONING WAS ABLE TO REMOVE SOME SECRETIONS FROM AIRWAY. PT HAS NO INPUT AND HAS SCANT OUTPUT VIA CONDE. URINE IS TEA COLORED. PT BREATHING IS HYPOPNEIC WITH RHONCI NOTED UPON AUSCULTATION OF LUNGS. PT IS CURRENTLY UNRESPONSIVE TO VERBAL/TACTILE STIMULI WITH BED IN LOWEST POSITION, AND CALL LIGHT WITHIN REACH.
[2022-12-09] MEDS ORDERED: ATROPINE SULFATE2 M1 SL (08:45)
[2022-12-09] MEDS ORDERED: BISA10S PR (08:45)
[2022-12-09] MEDS ORDERED: Ativan1 MG PO (08:46)
[2022-12-09] MEDS ORDERED: HALO2 PO (08:46)
[2022-12-09] MEDS ORDERED: MORP20L SL (08:47)
[2022-12-09] MEDS ORDERED: OLAN5A MM (08:48)
[2022-12-09] MEDS ORDERED: MORP15ER PO (08:48)
[2022-12-09] MEDS ORDERED: TRANSDERM-SCOP1 EA13 TD (08:51)
--- NOTE | 2022-12-09 10:17 | NUR ---
DISCHARGE SUMMARY PT RESTING IN BED, NO SIGNS OF DISTRESS. MOANING NOISES HEARD WHEN REPOSITIONING. PT TO BE TRANSFERED TO [facility] FOR HOSPICE CARE AT 1030, REPORT CALLED TO [facility]. NO IV OR TELE IN PLACE. WILL CONTINUE TO MONITOR UNTIL AMBULANCE ARRIVES.
== END 2022-12-09 10:38 | disposition hospice, inpatient (51) | DRG 897 ==
LOC: ER 04:07 → PCU 10:28 → ICUW 10:28 → MEDS 10:28 → PCU 11:28 → ICUW 11-11 10:24 → MEDS 11-12 20:55
PROVIDERS: Internal Medicine Critical Care Medicine; Pharmacist; Student in an Organized Health Care Education/Training Program; ADMIT Hospitalist
PROC: HZ2ZZZZ Detoxification Services for Substance Abuse Treatment (ICD-10-PCS; principal; 2022-11-09)
PROC: B24BZZZ Ultrasonography of Heart with Aorta (ICD-10-PCS; 2022-11-09)
PROC: 4A033R1 Measurement of Arterial Saturation, Peripheral, Percutaneous Approach (ICD-10-PCS; 2022-11-11)
DX: F10.239 Alcohol dependence with withdrawal, unspecified (principal); B37.0 Candidal stomatitis; F05 Delirium due to known physiological condition; Z51.5 Encounter for palliative care; Z66 Do not resuscitate; Z59.00 Homelessness unspecified; R64 Cachexia; C22.0 Liver cell carcinoma; I50.22 Chronic systolic (congestive) heart failure; J90 Pleural effusion, not elsewhere classified; I48.91 Unspecified atrial fibrillation; I95.9 Hypotension, unspecified; J44.9 Chronic obstructive pulmonary disease, unspecified; K70.31 Alcoholic cirrhosis of liver with ascites; L89.152 Pressure ulcer of sacral region, stage 2; K70.11 Alcoholic hepatitis with ascites; F17.210 Nicotine dependence, cigarettes, uncomplicated; E86.0 Dehydration; D69.59 Other secondary thrombocytopenia; G62.1 Alcoholic polyneuropathy; L73.9 Follicular disorder, unspecified; Z59.89 Other problems related to housing and economic circumstances; Z68.27 Body mass index [BMI] 27.0-27.9, adult; Z86.19 Personal history of other infectious and parasitic diseases; Z88.8 Allergy status to other drugs, medicaments and biological substances; Z79.899 Other long term (current) drug therapy
CPT/HCPCS: 36415; 36600; 51702; 71045; 74177; 76705; 80048; 80053; 81001; 82105; 82140; 82550; 82553; 82803; 82947; 83605; 83690; 83735; 83880; 84100; 84484; 85014; 85018; 85025; 85520; 85610; 85730; 87040; 93005; 93010; 93306; 94664; 94760; 94762; 96365; 96375; 96376; 97162; 97166; 97530; 97535; 99291-25; A9270; C1751; J0456; J0696; J1644; J1650; J1885; J2060; J2270; J2405; J2920; J3370; J3411; J7030; J7040; J7050; J7120; J7512; Q9967